=== PATIENT | male | born 1955 | race Caucasian/White ===

== ENCOUNTER 2016-05-27 03:39 | Emergency (ER) | payer OTHER ==
[~2016-05-27] VITALS: Ht 170.2 cm; Wt 86.4 kg
[~2016-05-27 03:39] MED LIST: IBUP200C PO; LISI-567 PO; LORA1TAB PO; METO50TA3 PO; OMEP40CA36 PO; PARO40TA3 PO
[2016-05-27 03:51] VITALS: BP 173/78; PULSE 79; RESP 21; O2SAT 94
--- NOTE | 2016-05-27 03:51 | ED.REPORT ---
HPI-General Illness Date of Service May 27, 2016 ED Provider: Dr. Abhilash Kauffman M.D. A 60 year old male well known to the ED with a medical history including diabetes, hypertension, alcohol abuse, and alcohol withdrawal with seizures and delirium tremens presents requesting a medication refill. He is interested in receiving "stomach medication, ibuprofen, steroid cream, and Ativan." The patient reports having a bed saved for him at [facility] today. He also complains of pain in his feet. Nursing Notes Stated Complaint: MEDICATION REFILL Nursing Notes Reviewed: Yes Allergies: Coded Allergies: Penicillins (Verified Allergy, Unknown, RASH, 05/09/16) acetaminophen (Verified Allergy, Unknown, RASH, 05/09/16) codeine (Verified Allergy, Unknown, 05/09/16) hydrocodone (Verified Allergy, Unknown, 05/09/16) oxycodone (Verified Allergy, Unknown, 05/09/16) Scheduled Lisinopril (Lisinopril) 20 Mg Tablet 20 MG PO DAILY Metoprolol Tartrate (Metoprolol Tartrate) 50 Mg Tablet 50 MG PO DAILY Omeprazole (Omeprazole) 40 Mg Capsule.dr 40 MG PO DAILY Omeprazole (Omeprazole) 40 Mg Capsule.dr 40 MG PO DAILY Paroxetine (Paroxetine) 40 Mg Tablet 40 MG PO DAILY Scheduled PRN Ibuprofen (Ibuprofen) 200 Mg Capsule 400 MG PO DAILY PRN PRN For Pain Ibuprofen (Ibuprofen) 600 Mg Tablet 600 MG PO QID PRN PRN For Pain Lorazepam (Lorazepam) 1 Mg Tablet 1 MG PO TID PRN PRN For Anxiety 2 tabs every 4 hr. for 2 d.; then 1 tab. every 4 h.; then 1 every 8 hours for 2 days; then one twice daily General Time Seen by MD: 03:51 Chief Complaint Other (Medication Refill) Hx Obtained From: Patient Arrived By: Walk-in Sudden in Onset?: Yes Onset Occurred: Just prior to arrival Symptom Duration: Since onset Location: : Foot left: Foot right Quality: Painful Severity: Current: Moderate Severity: Maximum: Moderate Associated with: Denies: Fever Pertinent Negative: Relieved by nothing Context Related History: Reports Diabetes mellitus, Reports Drug dependence Recent Healthcare: No recent doctor visit Similar Sx Previous: Yes Past Medical History Past Medical History Notes: 05/14/14: Normal stress echocardiogram 04/11/2016[facility] [place] states they will not take him back when he is detoxing Past Medical History ETOH Abuse h/o Seizures and delirium tremens secondary to alcohol withdrawal (by report - long hx of ED visits more recently without seizures for years) Mild Seizure Disorder followed by Dr. Armijo (was on Topamax, D/C'd 01/03 as can contribute to kidney stones, has tolerated Depakote) Anxiety and panic disorder Kidney Stones Patient has horded benzodiazepines with multiple prescriptions from multiple providers H/o mild LFT elevation attributed to ETOH abuse Chronic shoulder pain right and left ("rotator cuff and labrum tear") Chronic hip pain Reports: Diabetes mellitus, GERD, Hyperlipidemia, Hypertension Past Surgical History Umbilical hernia repair. Bilateral inguinal hernia repair. Tonsillectomy. Melanoma removed twice at two different sites. Cystocopy and ureteral stone extraction 12/[address] Kincaid Family History noncontributory Smoking History Never Smoker Social History Alcohol Use: >5 per day Drug Use: THC Other Social History: Poor social support, Frequent ED visitor, Local resident , Homeless Occupation homeless 04/11/2016 Ambulatory Status Independent Review of Systems + Medication refill request Full Review of Systems Constitutional: Denies: Fever Respiratory: Denies: Non-productive cough, Shortness of breath GI: Denies: Vomiting Musculoskeletal: Reports: Extremity pain (Bilateral feet) Complete sys rev & neg: except as marked. Physical Exam Vital Signs Vital Signs Date Time Temp Pulse Resp B/P Pulse Ox O2 Delivery O2 Flow Rate FiO2 05/27/16 04:25 36.2 79 21 173/78 94 Room Air 05/27/16 03:51 36.2 79 21 173/78 94 Room Air Initial VS: Reviewed, Vital signs abnormal Head / Eyes: Atraumatic, Normocephalic ENT: Conjunctiva normal, No scleral icterus Neck: Supple, Full range of motion Respiratory: Breath sounds normal, Clear to auscultation, No respiratory distress Cardiovascular: Regular rate & rhythm, Heart sounds normal Skin: Warm, Dry, No cyanosis Neurologic: Alert, Oriented, Nonfocal Psychiatric: Mood/affect normal, Behavior normal, Normal thought content General/Constitutional: Awake, Alert, No acute distress Appearance / Presentation: Positive: Appears older than age Abdomen: Soft Tenderness/Guarding/Rebound: Positive: Tender RUQ... Lower Extremity / Pelvis / MS: Neurologic intact, Vascular intact Trace bilateral pitting edema Ankle / Foot: Neurologic intact, Vascular intact Toenail fungus and tinea pedis present bilaterally Re-Eval/Medical Decision Med Decision/Clinical Course 60-year-old chronic alcoholic who presents for routine refill of 3 medications, "I can't get into see my resident physician." He also states that he has a bed later today at [facility] which I confirmed. An Ativan taper was written to be used only by [facility]. Source of Hx: Old records Time of Eval: 04:00 Patient Status: Condition improved Re-Evaluation/Progress Note: Discussed with patient diagnosis and plan for discharge. Follow-up and return to the ER instructions given. Patient agrees with plan for care and all questions were addressed. Consultation : Call Returned at: 03:57 Inspector [employer] Castings: Agrees with eval, Agrees with plan Note: [facility] - The patient does have a spot pending bed availability Counseled Regarding: Diagnosis, Need for follow-up, When/why to return to ED Discharge & Departure Primary Impression: Medication refill Additional Impressions: Alcohol dependence Substance use status: uncomplicated Qualified Code: F10.20 - Alcohol dependence, uncomplicated Homeless Disposition: Home Discharge Condition All VS Reviewed: Yes Condition: Stable Patient Instructions: Alcohol Withdrawal (ED) Additional Instructions: I refilled [facility] omeprazole, ibuprofen, and triamcinolone steroid cream. I faxed a tapered dose of Ativan to the pharmacy used by [facility]. It can only be accessed if you are at [facility]. Contact them later today to see if there is a bed available. Referrals: Chandni Mcclure DO (PCP) Ewa Attestation Portions of this note were transcribed by Sera Degroot. I, Dr. Kauffman, personally performed the history, physical exam, and medical decision-making; I reviewed and confirmed the accuracy of the information in the transcribed note. Signed by: Ewa Valadez, 05/27/2016, 04:42 copies to: Chandni Mcclure Howard L MD May 27, 2016 03:51 SERA DEGROOT May 27, 2016 03:58
[2016-05-27] MEDS ORDERED: OMEP40CA36 PO (04:06)
[2016-05-27] MEDS ORDERED: IBUP-1827 PO (04:06)
[2016-05-27 04:25] VITALS: BP 173/78; PULSE 79; RESP 21; O2SAT 94
== END 2016-05-27 04:26 | disposition home or self-care (01) ==
LOC: SED 03:39
DX: F10.20 Alcohol dependence, uncomplicated (principal); M79.671 Pain in right foot; M79.672 Pain in left foot; I10 Essential (primary) hypertension; K21.9 Gastro-esophageal reflux disease without esophagitis; E11.9 Type 2 diabetes mellitus without complications; E78.5 Hyperlipidemia, unspecified; Z76.0 Encounter for issue of repeat prescription; Z59.0 Homelessness; Z88.0 Allergy status to penicillin; Z88.5 Allergy status to narcotic agent; Z88.8 Allergy status to other drugs, medicaments and biological substances

== ENCOUNTER 2016-05-30 20:33 | Emergency (ER) | payer OTHER ==
[~2016-05-30] VITALS: Ht 170.2 cm; Wt 86.0 kg
[~2016-05-30 20:33] MED LIST changes: +IBUP-1827 PO
[2016-05-30 20:40] VITALS: BP 119/70; PULSE 73; RESP 20; O2SAT 98
--- NOTE | 2016-05-30 22:28 | ED.REPORT ---
HPI-General Illness Date of Service May 30, 2016 ED Provider: Abhilash Kauffman MD Patient is 60 y/o male with a history of alcoholism who presents to ED complaining of numbness and burning sensation of the left upper extremity. He also is requesting assistance with alcohol detox. Patient is well known to us here in the department. Nursing Notes Stated Complaint: LEFT ARM ISSUES,DETOX RX QUESTIONS Chief Complaint: General Complaint Nursing Notes Reviewed: Yes Allergies: Coded Allergies: Penicillins (Verified Allergy, Unknown, RASH, 05/09/16) acetaminophen (Verified Allergy, Unknown, RASH, 05/09/16) codeine (Verified Allergy, Unknown, 05/09/16) hydrocodone (Verified Allergy, Unknown, 05/09/16) oxycodone (Verified Allergy, Unknown, 05/09/16) Scheduled Lisinopril (Lisinopril) 20 Mg Tablet 20 MG PO DAILY Metoprolol Tartrate (Metoprolol Tartrate) 50 Mg Tablet 50 MG PO DAILY Omeprazole (Omeprazole) 40 Mg Capsule.dr 40 MG PO DAILY Omeprazole (Omeprazole) 40 Mg Capsule.dr 40 MG PO DAILY Paroxetine (Paroxetine) 40 Mg Tablet 40 MG PO DAILY Scheduled PRN Ibuprofen (Ibuprofen) 200 Mg Capsule 400 MG PO DAILY PRN PRN For Pain Ibuprofen (Ibuprofen) 600 Mg Tablet 600 MG PO QID PRN PRN For Pain Lorazepam (Lorazepam) 1 Mg Tablet 1 MG PO TID PRN PRN For Anxiety 2 tabs every 4 hr. for 2 d.; then 1 tab. every 4 h.; then 1 every 8 hours for 2 days; then one twice daily General Time Seen by MD: 22:27 Chief Complaint Other (Left Arm Numbness) Hx Obtained From: Patient Arrived By: Walk-in Sudden in Onset?: No Onset Occurred: Onset unknown Location: : Arm left Quality: Burning Severity: Current: Moderate Severity: Maximum: Moderate Similar Sx Previous: Yes Past Medical History Past Medical History Notes: 05/14/14: Normal stress echocardiogram 04/11/2016, [facility] [place], states they will not take him back when he is detoxing Past Medical History ETOH Abuse h/o Seizures and delirium tremens secondary to alcohol withdrawal (by report - long hx of ED visits more recently without seizures for years) Mild Seizure Disorder followed by Dr. Armijo (was on Topamax, D/C'd 01/03 as can contribute to kidney stones, has tolerated Depakote) Anxiety and panic disorder Kidney Stones Patient has horded benzodiazepines with multiple prescriptions from multiple providers H/o mild LFT elevation attributed to ETOH abuse Chronic shoulder pain right and left ("rotator cuff and labrum tear") Chronic hip pain Reports: Diabetes mellitus, GERD, Hyperlipidemia, Hypertension Past Surgical History Umbilical hernia repair. Bilateral inguinal hernia repair. Tonsillectomy. Melanoma removed twice at two different sites. Cystocopy and ureteral stone extraction 12/[address] Kincaid Family History noncontributory Smoking History Never Smoker Social History Alcohol Use: >5 per day Drug Use: THC Other Social History: Poor social support, Frequent ED visitor, Local resident , Homeless Occupation homeless 04/11/2016 Ambulatory Status Independent Review of Systems Full Review of Systems Constitutional: Denies: Chills, Fever Musculoskeletal: Reports: Extremity pain (Left Arm), Denies: Back pain, Joint pain, Lumbar pain, Neck pain, Thoracic pain Neurologic: Reports: Numbness (Left Arm) Complete sys rev & neg: except as marked. Physical Exam Vital Signs Vital Signs Date Time Temp Pulse Resp B/P Pulse Ox O2 Delivery O2 Flow Rate FiO2 05/30/16 20:40 37.2 73 20 119/70 98 Room Air Initial VS: Reviewed, Vital signs normal General/Constitutional: Well-developed, Well-nourished Head / Eyes: Atraumatic, Normocephalic, PERRL Respiratory: Breath sounds normal, Clear to auscultation, No respiratory distress Cardiovascular: Regular rate & rhythm, Heart sounds normal, Intact distal pulses Skin: Warm, Dry, No cyanosis Neurologic: Alert, Oriented, Nonfocal Psychiatric: Mood/affect normal, Behavior normal, Normal thought content Upper Extremities Upper Extremity / MS: Atraumatic, Full range of motion, No deformity, Vascular intact Neurologic: Oriented X3, Speech NL, No motor deficits Pt reports numbness and burning sensation to left arm. Interpretation & Diagnostics Lab Results Interpretation Lab Results Interpretation: Breathalyzer 0.180 Re-Eval/Medical Decision Med Decision/Clinical Course Patient presents to get an Ativan prepack so he can go to [facility]. He did a phone screening intake evaluation with them. We were waiting to hear back from them when it was noted that he eloped. Source of Hx: Old records Counseled Regarding: Lab results Discharge & Departure Primary Impression: Alcohol dependence Substance use status: uncomplicated Qualified Code: F10.20 - Alcohol dependence, uncomplicated Disposition: Home Discharge Condition All VS Reviewed: Yes Referrals: Chandni Mcclure DO (PCP) Ewa Attestation Portions of this note were transcribed by Jamin Miner. I, Dr. Kauffman personally performed the history, physical exam and medical decision-making; I reviewed and confirmed the accuracy of the information in the transcribed note. Signed by: Ewa Miner, 05/31/16 and 01:33. copies to: Chandni Mcclure Howard L MD May 30, 2016 22:28 Almas Lomeli May 30, 2016 22:38 JAMIN SY May 31, 2016 00:01
== END 2016-05-31 00:15 | disposition left against medical advice (07) ==
LOC: SED 20:33
DX: F10.20 Alcohol dependence, uncomplicated (principal); R20.0 Anesthesia of skin; E11.9 Type 2 diabetes mellitus without complications; K21.9 Gastro-esophageal reflux disease without esophagitis; E78.5 Hyperlipidemia, unspecified; I10 Essential (primary) hypertension; Z59.0 Homelessness; Z88.0 Allergy status to penicillin; Z88.6 Allergy status to analgesic agent; Z88.5 Allergy status to narcotic agent

== ENCOUNTER 2016-06-03 20:39 | Emergency (ER) | payer OTHER ==
[~2016-06-03] VITALS: Ht 170.2 cm; Wt 86.4 kg
[2016-06-03 20:43] VITALS: BP 155/83; PULSE 80; RESP 16; O2SAT 96
--- NOTE | 2016-06-03 21:40 | ED.REPORT ---
HPI-General Illness Date of Service Jun 03, 2016 ED Provider: Doc,Ed MD The patient is a 60 year old male with extensive history of ED visits for alcohol abuse who presents to the ED seeking medical clearance for [facility]. He reports that he has spoken with [facility] and is waiting for a bed. He has been drinking today, but "less than he normally does". He denies any other symptoms at this time. Nursing Notes Stated Complaint: MEDICAL CLEARANCE FOR CRISIS Chief Complaint: Substance Abuse Nursing Notes Reviewed: Yes Allergies: Coded Allergies: Penicillins (Verified Allergy, Unknown, RASH, 05/09/16) acetaminophen (Verified Allergy, Unknown, RASH, 05/09/16) codeine (Verified Allergy, Unknown, 05/09/16) hydrocodone (Verified Allergy, Unknown, 05/09/16) oxycodone (Verified Allergy, Unknown, 05/09/16) Scheduled Lisinopril (Lisinopril) 20 Mg Tablet 20 MG PO DAILY Metoprolol Tartrate (Metoprolol Tartrate) 50 Mg Tablet 50 MG PO DAILY Omeprazole (Omeprazole) 40 Mg Capsule.dr 40 MG PO DAILY Omeprazole (Omeprazole) 40 Mg Capsule.dr 40 MG PO DAILY Paroxetine (Paroxetine) 40 Mg Tablet 40 MG PO DAILY Scheduled PRN Ibuprofen (Ibuprofen) 200 Mg Capsule 400 MG PO DAILY PRN PRN For Pain Ibuprofen (Ibuprofen) 600 Mg Tablet 600 MG PO QID PRN PRN For Pain Lorazepam (Lorazepam) 1 Mg Tablet 1 MG PO TID PRN PRN For Anxiety 2 tabs every 4 hr. for 2 d.; then 1 tab. every 4 h.; then 1 every 8 hours for 2 days; then one twice daily General Time Seen by MD: 21:39 Chief Complaint Other (Medical clearance) Hx Obtained From: Patient Arrived By: Walk-in Sudden in Onset?: No Onset Occurred: Onset unknown Symptom Duration: Since onset Severity: Current: No pain currently Severity: Maximum: No pain Recent Healthcare: No recent hospitalization, Recent doctor visit Similar Sx Previous: Yes Past Medical History Past Medical History Notes: 05/14/14: Normal stress echocardiogram 04/11/2016, [facility] [place], states they will not take him back when he is detoxing Past Medical History ETOH Abuse h/o Seizures and delirium tremens secondary to alcohol withdrawal (by report - long hx of ED visits more recently without seizures for years) Mild Seizure Disorder followed by Dr. Armijo (was on Topamax, D/C'd 01/03 as can contribute to kidney stones, has tolerated Depakote) Anxiety and panic disorder Kidney Stones Patient has horded benzodiazepines with multiple prescriptions from multiple providers H/o mild LFT elevation attributed to ETOH abuse Chronic shoulder pain right and left ("rotator cuff and labrum tear") Chronic hip pain Reports: Diabetes mellitus, GERD, Hyperlipidemia, Hypertension Past Surgical History Umbilical hernia repair. Bilateral inguinal hernia repair. Tonsillectomy. Melanoma removed twice at two different sites. Cystocopy and ureteral stone extraction 12/[address] Kincaid Family History noncontributory Smoking History Never Smoker Social History Alcohol Use: >5 per day Drug Use: THC Other Social History: Poor social support, Frequent ED visitor, Local resident , Homeless Occupation homeless 04/11/2016 Ambulatory Status Independent Review of Systems Alcohol intoxication Medical clearance for [facility] Complete sys rev & neg: except as marked. Physical Exam Vital Signs Vital Signs Date Time Temp Pulse Resp B/P Pulse Ox O2 Delivery O2 Flow Rate FiO2 06/04/16 04:58 36.7 84 16 182/93 98 Room Air 06/03/16 20:43 36.2 80 16 155/83 96 Room Air Initial VS: Reviewed Head / Eyes: Atraumatic, Normocephalic, PERRL ENT: Mucous membranes moist, Conjunctiva normal, No scleral icterus Neck: Supple, Non-tender, Full range of motion Respiratory: Breath sounds normal, Clear to auscultation, No respiratory distress Cardiovascular: Regular rate & rhythm, Heart sounds normal, Intact distal pulses Abdomen / GI: Soft, Non-tender, No guarding, No rebound, No distention Back: No CVA tenderness Extremities: Vascular intact, Neuro intact, No swelling, No tenderness Skin: Warm, Dry, No cyanosis Psychiatric: Mood/affect normal, Behavior normal General/Constitutional: Awake, No acute distress Appearance / Presentation: Positive: Intoxicated Patient presents intoxicated and laying on the floor. He denies any complaint at this time. Re-Eval/Medical Decision Med Decision/Clinical Course 60-year-old chronic alcoholism presents for clearance for detox and crisis. No additional medical issues from his paced line. Cleared to crisis with lorazepam at double the standard dose, as he has repeatedly failed lower dose regimens. He is transported via taxicab with meds delivered to crisis via the cab. Source of Hx: Old records Time of Eval: 23:30 Re-Evaluation/Progress Note: Spoke with [facility] who confirmed that the patient has a bed waiting for him at 09:00. Counseled Regarding: Diagnosis, Need for follow-up, When/why to return to ED Discharge & Departure Primary Impression: Alcohol abuse Additional Impression: Alcohol withdrawal Complication of substance-induced condition: uncomplicated Qualified Code: F10.230 - Alcohol dependence with withdrawal, uncomplicated Disposition: Home ([facility]) Discharge Condition All VS Reviewed: Yes Condition: Stable Patient Instructions: Alcohol Withdrawal (ED) Additional Instructions: Go directly to Crisis. Take medicines as directed by staff. Good luck with your recovery. Referrals: Chandni Mcclure DO (PCP) Ewa Attestation Portions of this note were transcribed by Ilia Dumont. I, Dr. Weinstein, personally performed the history, physical exam, and medical decision-making; I reviewed and confirmed the accuracy of the information in the transcribed note. Signed by: Ewa Macias, 06/04/16 06:00. copies to: Chandni Mcclure Christopher W MD Jun 03, 2016 21:39 ILIA DUMONT Jun 03, 2016 22:32
[2016-06-03] MEDS ORDERED: _LORazepam 2 MG Tablet PO SCH (23:30)
[2016-06-04] MEDS ORDERED: LORazepam 2 mg Tablet PO ONE ×2 (02:30→05:20)
[2016-06-04 04:58] VITALS: BP 182/93; PULSE 84; RESP 16; O2SAT 98
== END 2016-06-04 09:16 | disposition home or self-care (01) ==
LOC: SED 20:39
DX: F10.230 Alcohol dependence with withdrawal, uncomplicated (principal); I10 Essential (primary) hypertension; E78.5 Hyperlipidemia, unspecified; K21.9 Gastro-esophageal reflux disease without esophagitis; E11.9 Type 2 diabetes mellitus without complications; G40.909 Epilepsy, unspecified, not intractable, without status epilepticus; Z59.0 Homelessness; Z88.0 Allergy status to penicillin; Z88.5 Allergy status to narcotic agent; Z88.8 Allergy status to other drugs, medicaments and biological substances

== ENCOUNTER 2016-06-15 01:37 | Emergency (ER) | payer OTHER ==
[~2016-06-15] VITALS: Ht 170.2 cm; Wt 90.9 kg
[2016-06-15 01:57] VITALS: BP 131/82; PULSE 70; RESP 16; O2SAT 96
--- NOTE | 2016-06-15 03:13 | ED.REPORT ---
HPI-General Illness Date of Service Jun 15, 2016 ED Provider: Abhilash Kauffman MD This is a 60 year old male with a history of EtOH abuse, frequent ED visits, HTN , DM, GERD, hyperlipidemia presenting to the emergency department today seeking detox. Pt reports recently treated through [facility] detox program, last EtOH consumption earlier today. Pt is interested in detox again. Additionally, he has been unable to fill prescriptions for omeprazole and ibuprofen and would like new prescriptions for the medications. Nursing Notes Stated Complaint: DETOX Chief Complaint: Substance Abuse Nursing Notes Reviewed: Yes Allergies: Coded Allergies: Penicillins (Verified Allergy, Unknown, RASH, 05/09/16) acetaminophen (Verified Allergy, Unknown, RASH, 05/09/16) codeine (Verified Allergy, Unknown, 05/09/16) hydrocodone (Verified Allergy, Unknown, 05/09/16) oxycodone (Verified Allergy, Unknown, 05/09/16) Scheduled Lisinopril (Lisinopril) 20 Mg Tablet 20 MG PO DAILY Metoprolol Tartrate (Metoprolol Tartrate) 50 Mg Tablet 50 MG PO DAILY Omeprazole (Omeprazole) 40 Mg Capsule.dr 40 MG PO DAILY Omeprazole (Omeprazole) 40 Mg Capsule.dr 40 MG PO DAILY Omeprazole (Omeprazole) 20 Mg Tablet.dr 20 MG PO BID Paroxetine (Paroxetine) 40 Mg Tablet 40 MG PO DAILY Scheduled PRN Ibuprofen (Ibuprofen) 200 Mg Capsule 400 MG PO DAILY PRN PRN For Pain Ibuprofen (Ibuprofen) 600 Mg Tablet 600 MG PO QID PRN PRN For Pain Ibuprofen (Ibuprofen) 600 Mg Tablet 600 MG PO QID PRN PRN For Pain Lorazepam (Lorazepam) 1 Mg Tablet 1 MG PO TID PRN PRN For Anxiety 2 tabs every 4 hr. for 2 d.; then 1 tab. every 4 h.; then 1 every 8 hours for 2 days; then one twice daily General Time Seen by MD: 02:08 Chief Complaint Other Hx Obtained From: Patient Arrived By: Walk-in Sudden in Onset?: No Severity: Current: No pain currently Pertinent Negative: Pt denies other symptoms Recent Healthcare: No recent doctor visit, No recent hospitalization Similar Sx Previous: Yes Past Medical History Past Medical History Notes: 05/14/14: Normal stress echocardiogram 04/11/2016, staying at [facility] in [place], states they will not take him back when he is detoxing Past Medical History ETOH Abuse h/o Seizures and delirium tremens secondary to alcohol withdrawal (by report - long hx of ED visits more recently without seizures for years) Mild Seizure Disorder followed by Dr. Armijo (was on Topamax, D/C'd 01/03 as can contribute to kidney stones, has tolerated Depakote) Anxiety and panic disorder Kidney Stones Patient has horded benzodiazepines with multiple prescriptions from multiple providers H/o mild LFT elevation attributed to ETOH abuse Chronic shoulder pain right and left ("rotator cuff and labrum tear") Chronic hip pain Reports: Diabetes mellitus, GERD, Hyperlipidemia, Hypertension Past Surgical History Umbilical hernia repair. Bilateral inguinal hernia repair. Tonsillectomy. Melanoma removed twice at two different sites. Cystocopy and ureteral stone extraction 12/[address] Kincaid Family History noncontributory Smoking History Never Smoker Social History Alcohol Use: >5 per day Drug Use: THC Other Social History: Poor social support, Frequent ED visitor, Local resident , Homeless Occupation homeless 04/11/2016 Ambulatory Status Independent Review of Systems Full Review of Systems Constitutional: Denies: Chills, Fever Respiratory: Denies: Non-productive cough, Shortness of breath Cardiovascular: Denies: Chest pain GI: Denies: Nausea, Vomiting Neurologic: Denies: Headache Complete sys rev & neg: except as marked. Physical Exam Vital Signs Vital Signs Date Time Temp Pulse Resp B/P Pulse Ox O2 Delivery O2 Flow Rate FiO2 06/15/16 04:59 70 18 144/65 99 Room Air 06/15/16 01:57 36 70 16 131/82 96 Room Air Initial VS: Reviewed, Vital signs normal Head / Eyes: Atraumatic, Normocephalic, PERRL ENT: Mucous membranes moist, Conjunctiva normal, No scleral icterus Neck: Supple, Non-tender, Full range of motion Respiratory: Breath sounds normal, Clear to auscultation, No respiratory distress Cardiovascular: Regular rate & rhythm, Heart sounds normal, Intact distal pulses Extremities: Vascular intact, Neuro intact, No swelling, No tenderness Skin: Warm, Dry, No cyanosis Neurologic: Alert, Oriented, Nonfocal Psychiatric: Behavior normal General/Constitutional: Awake, Alert Re-Eval/Medical Decision Med Decision/Clinical Course 60-year-old male who is well known to me. He presents for detox with a long complicated story about how he will be successful this time. Short of it is that there is no beds available. He was prescreened on the telephone with [facility]. A tapering prescription of lorazepam was written and faxed to [facility] only to be used if and when [facility]. Counseled Regarding: Diagnosis, Need for follow-up, When/why to return to ED Discharge & Departure Primary Impression: Alcohol abuse Disposition: Home Discharge Condition All VS Reviewed: Yes Condition: Stable Patient Instructions: Alcohol Withdrawal (ED) Additional Instructions: Contact [facility] in the morning to see if they have a bed available for you. If you do go there, they can shredder picker your Ativan taper prescription at [facility] pharmacy. Ibuprofen and omeprazole were also refilled. Referrals: Chandni Mcclure DO (PCP) Scribe Attestation Portions of this note were transcribed by Cosmo Chilel. I, Dr. Kauffman personally performed the history, physical exam and medical decision-making; I reviewed and confirmed the accuracy of the information in the transcribed note. Signed by: romelia Soni. 06/14/2016, 05:00. Abhilash Kauffman MD Jun 15, 2016 03:13 COSMO CHILEL Jun 15, 2016 03:43
[2016-06-15] MEDS ORDERED: OMEP20TA86 PO (04:41)
[2016-06-15] MEDS ORDERED: IBUP-1827 PO (04:41)
[2016-06-15 04:59] VITALS: BP 144/65; PULSE 70; RESP 18; O2SAT 99
== END 2016-06-15 04:45 | disposition home or self-care (01) ==
LOC: SED 01:37
DX: F10.20 Alcohol dependence, uncomplicated (principal); I10 Essential (primary) hypertension; K21.9 Gastro-esophageal reflux disease without esophagitis; E11.9 Type 2 diabetes mellitus without complications; E78.5 Hyperlipidemia, unspecified; Z59.0 Homelessness; Z88.0 Allergy status to penicillin; Z88.6 Allergy status to analgesic agent; Z88.5 Allergy status to narcotic agent

== ENCOUNTER 2016-06-17 21:17 | Emergency (ER) | payer OTHER ==
[~2016-06-17] VITALS: Ht 170.2 cm; Wt 88.6 kg
[~2016-06-17 21:17] MED LIST changes: +OMEP20TA86 PO
[2016-06-17 21:23] VITALS: BP 141/76; PULSE 79; RESP 20; O2SAT 98
--- NOTE | 2016-06-17 21:29 | ED.REPORT ---
HPI-General Illness Date of Service Jun 17, 2016 ED Provider: David Weinstein MD A 60 year old male with a history of alcohol abuse, frequent ED visits, seizures , hypertension, diabetes, GERD and hyperlipidemia presents to the ED seeking medical clearance for [facility]. Patient reportedly has a bed available at 0100. He states that he currently feels dehydrated and has also been experiencing constipation for the past few days. Patient has been seen in the ED 4 times for alcohol abuse since 05/22. He was recently discharged from [facility] 5 days ago. Patient plans to attend a longterm care facility in [place] later this month. He claims that he is no longer homeless and "feels great". He denies any current abdominal pain, nausea or symptoms of pancreatics. Patient takes baclofen for muscle spasms and states that he has also been using it to "reduce cravings". Nursing Notes Stated Complaint: CRISIS MEDICAL CLEARANCE Chief Complaint: General Complaint Nursing Notes Reviewed: Yes Allergies: Coded Allergies: Penicillins (Verified Allergy, Unknown, RASH, 05/09/16) acetaminophen (Verified Allergy, Unknown, RASH, 05/09/16) codeine (Verified Allergy, Unknown, 05/09/16) hydrocodone (Verified Allergy, Unknown, 05/09/16) oxycodone (Verified Allergy, Unknown, 05/09/16) Scheduled Lisinopril (Lisinopril) 20 Mg Tablet 20 MG PO DAILY Metoprolol Tartrate (Metoprolol Tartrate) 50 Mg Tablet 50 MG PO DAILY Omeprazole (Omeprazole) 40 Mg Capsule. 40 MG PO DAILY Omeprazole (Omeprazole) 40 Mg Capsule. 40 MG PO DAILY Omeprazole (Omeprazole) 20 Mg Tablet.dr 20 MG PO BID Paroxetine (Paroxetine) 40 Mg Tablet 40 MG PO DAILY Scheduled PRN Ibuprofen (Ibuprofen) 200 Mg Capsule 400 MG PO DAILY PRN PRN For Pain Ibuprofen (Ibuprofen) 600 Mg Tablet 600 MG PO QID PRN PRN For Pain Ibuprofen (Ibuprofen) 600 Mg Tablet 600 MG PO QID PRN PRN For Pain Lorazepam (Lorazepam) 1 Mg Tablet 1 MG PO TID PRN PRN For Anxiety 2 tabs every 4 hr. for 2 d.; then 1 tab. every 4 h.; then 1 every 8 hours for 2 days; then one twice daily Ondansetron ODT (Ondansetron ODT) 8 Mg Tab.rapdis 8 MG PO QID PRN PRN For Nausea General Time Seen by MD: 21:25 Chief Complaint Medical clearance Hx Obtained From: Patient Arrived By: Walk-in Sudden in Onset?: No Onset Occurred: 3 days ago Context of Onset: EtOH use Symptom Duration: Since onset Location: No: Abdomen Associated with: Denies: Abdominal pain, Nausea Additional Notes: Pt is seeking medical clearence for [facility] Pertinent Negative: Pt denies other symptoms Recent Healthcare: Recent doctor visit, Recent hospitalization Past Medical History Past Medical History Notes: 05/14/14: Normal stress echocardiogram 04/11/2016, [facility] [place], states they will not take him back when he is detoxing Past Medical History ETOH Abuse h/o Seizures and delirium tremens secondary to alcohol withdrawal (by report - long hx of ED visits more recently without seizures for years) Mild Seizure Disorder followed by Dr. Armijo (was on Topamax, D/C'd 01/03 as can contribute to kidney stones, has tolerated Depakote) Anxiety and panic disorder Kidney Stones Patient has horded benzodiazepines with multiple prescriptions from multiple providers H/o mild LFT elevation attributed to ETOH abuse Chronic shoulder pain right and left ("rotator cuff and labrum tear") Chronic hip pain Reports: Diabetes mellitus, GERD, Hyperlipidemia, Hypertension Past Surgical History Umbilical hernia repair. Bilateral inguinal hernia repair. Tonsillectomy. Melanoma removed twice at two different sites. Cystocopy and ureteral stone extraction 12/[address] Kincaid Family History noncontributory Smoking History Never Smoker Social History Alcohol Use: >5 per day Drug Use: THC Other Social History: Poor social support, Frequent ED visitor, Local resident , Homeless Occupation homeless 04/11/2016 Ambulatory Status Independent Review of Systems Pt is seeking medical clearance for [facility] Reports feeling dehydrated Full Review of Systems Constitutional: Denies: Chills, Fever Respiratory: Denies: Shortness of breath Cardiovascular: Denies: Chest pain GI: Reports: Constipation, Denies: Abdominal pain, Nausea, Vomiting Neurologic: Denies: Change LOC Complete sys rev & neg: except as marked. Physical Exam Vital Signs Vital Signs Date Time Temp Pulse Resp B/P Pulse Ox O2 Delivery O2 Flow Rate FiO2 06/18/16 00:54 36.2 75 16 135/75 94 Room Air 06/17/16 21:23 36.2 79 20 141/76 98 Initial VS: Reviewed Neck: Supple, Non-tender, Full range of motion Skin: Warm, Dry, No cyanosis Neurologic: Alert, Oriented, Nonfocal Psychiatric: Mood/affect normal, Behavior normal, Normal thought content General/Constitutional: Awake, Alert Appearance / Presentation: Positive: Intoxicated (Mild ) Head / Eyes: Atraumatic, Normocephalic Respiratory / Chest: Atraumatic, Breath sounds NL, Breath sounds = bilat Cardiovascular: Heart rate NL, Regular rhythm, Heart sounds NL Abdomen: Atraumatic, Soft Upper Extremities Upper Extremity / MS: Atraumatic, Neurologic intact, Vascular intact Lower Extremity / Pelvis / MS: Atraumatic, Neurologic intact, Vascular intact Interpretation & Diagnostics Lab Results Interpretation Test 06/17/16 22:10 Hold Urine Received (Received) Re-Eval/Medical Decision Med Decision/Clinical Course 60-year-old with chronic alcoholism, alcohol liver disease, pancreatitis, presents requesting medical clearance for detox bed. He has no other specific complaints tonight. He says he has not long-term bed date for later this week and intends to go to [place] for that long-term admission. Transported via [employer] to [facility] with Ativan taper, Zofran when necessary, and continuation of his current baclofen, currently being prescribed to reduce alcohol craving. He is stable for outpatient detox and transported in stable condition. Time of Eval: 22:53 Patient Status: Condition improved Re-Evaluation/Progress Note: Patient is rechecked. He is informed of his lab results and diagnosis. All of his questions are addressed. Patient agrees with plan to discharge and go to his bed at [facility] at 0100. Consultation : Call Returned at: 00:00 Note: [facility] confirms available bed. Counseled Regarding: Diagnosis, Lab results, Need for follow-up, When/why to return to ED Discharge & Departure Primary Impression: Alcoholism Additional Impressions: Alcohol intoxication Complication of substance-induced condition: uncomplicated Qualified Code: F10.120 - Alcohol abuse with intoxication, uncomplicated Alcohol withdrawal Complication of substance-induced condition: uncomplicated Qualified Code: F10.230 - Alcohol dependence with withdrawal, uncomplicated Disposition: Home Discharge Condition All VS Reviewed: Yes Condition: Stable Additional Instructions: Go to crisis as directed. Take the medication as Directed. Good luck with her recovery. Good luck with your long-term rehabilitation admission. Referrals: Chandni Mcclure DO (PCP) Ewa Attestation Portions of this note were transcribed by Leyda Hensley. I, Dr. Weinstein personally performed the history, physical exam and medical decision-making; I reviewed and confirmed the accuracy of the information in the transcribed note. Signed by: Ewa Vallejo, 06/17/16 2300. copies to: Chandni Mcclure Christopher W MD Jun 17, 2016 21:29 LEYDA HENSLEY Jun 17, 2016 21:40
[2016-06-17] MEDS ORDERED: LORazepam 2 mg Tablet PO ONE (22:15)
[2016-06-17] MEDS ORDERED: Ondansetron 8 mg ODT Tablet PO ONE (22:15)
[2016-06-17] MEDS ORDERED: _Ondansetron ODT 4 mg Tablet PO PRN (22:15)
[2016-06-17] MEDS ORDERED: _LORazepam 2 MG Tablet PO SCH (22:15)
[2016-06-17] MEDS ORDERED: ONDA8TAB10 PO (22:47)
[2016-06-18 00:54] VITALS: BP 135/75; PULSE 75; RESP 16; O2SAT 94
== END 2016-06-18 00:45 | disposition home or self-care (01) ==
LOC: SED 21:17
DX: F10.230 Alcohol dependence with withdrawal, uncomplicated (principal); E86.0 Dehydration; K59.00 Constipation, unspecified; M62.838 Other muscle spasm; I10 Essential (primary) hypertension; K21.9 Gastro-esophageal reflux disease without esophagitis; E78.5 Hyperlipidemia, unspecified; E11.9 Type 2 diabetes mellitus without complications; Z59.0 Homelessness; Z88.0 Allergy status to penicillin; Z88.5 Allergy status to narcotic agent; Z88.8 Allergy status to other drugs, medicaments and biological substances

== ENCOUNTER 2016-06-29 23:09 | Emergency (ER) | payer OTHER ==
[~2016-06-29 23:09] MED LIST changes: +ONDA8TAB10 PO
[2016-06-29 23:14] VITALS: BP 157/88; PULSE 68; O2SAT 97
--- NOTE | 2016-06-29 23:55 | ED.REPORT ---
HPI-General Illness Date of Service Jun 29, 2016 ED Provider: Abhilash Kauffman MD Patient is a homeless 60 year old male with a history of alcohol abuse with alcohol withdrawal seizures who presents to the ED seeking medical management of his alcohol withdrawal prior to presenting to [facility] tomorrow morning, with the patient last consuming alcohol just prior to arrival. The patient traveling to [place] at 7am tomorrow morning and is afraid that he is going to go into withdrawal before then. His hand method lasting machine operator is meeting him at [facility] in [facility] at 7am, driving him to [place], where he will take the ferry to [place]. The patient states that [facility] has both detox and inpatient care. The patient reports having a sore throat and states that the woman he was staying with recently was sick with an upper respiratory infection. Patient denies having a cough, fever, chills, or any symptoms of alcohol withdrawal at this time. Nursing Notes Stated Complaint: SORE THROAT,DETOX Chief Complaint: General Complaint Nursing Notes Reviewed: Yes Allergies: Coded Allergies: Penicillins (Verified Allergy, Unknown, RASH, 05/09/16) acetaminophen (Verified Allergy, Unknown, RASH, 05/09/16) codeine (Verified Allergy, Unknown, 05/09/16) hydrocodone (Verified Allergy, Unknown, 05/09/16) oxycodone (Verified Allergy, Unknown, 05/09/16) Scheduled Lisinopril (Lisinopril) 20 Mg Tablet 20 MG PO DAILY Metoprolol Tartrate (Metoprolol Tartrate) 50 Mg Tablet 50 MG PO DAILY Omeprazole (Omeprazole) 40 Mg Capsule.dr 40 MG PO DAILY Omeprazole (Omeprazole) 40 Mg Capsule.dr 40 MG PO DAILY Omeprazole (Omeprazole) 20 Mg Tablet.dr 20 MG PO BID Paroxetine (Paroxetine) 40 Mg Tablet 40 MG PO DAILY Scheduled PRN Ibuprofen (Ibuprofen) 200 Mg Capsule 400 MG PO DAILY PRN PRN For Pain Ibuprofen (Ibuprofen) 600 Mg Tablet 600 MG PO QID PRN PRN For Pain Ibuprofen (Ibuprofen) 600 Mg Tablet 600 MG PO QID PRN PRN For Pain Lorazepam (Lorazepam) 1 Mg Tablet 1 MG PO TID PRN PRN For Anxiety 2 tabs every 4 hr. for 2 d.; then 1 tab. every 4 h.; then 1 every 8 hours for 2 days; then one twice daily Ondansetron ODT (Ondansetron ODT) 8 Mg Tab.rapdis 8 MG PO QID PRN PRN For Nausea General Time Seen by MD: 23:53 Chief Complaint Medical clearance, Other (alcohol withdrawal) Hx Obtained From: Patient Arrived By: Walk-in Sudden in Onset?: No Onset Occurred: Just prior to arrival Symptom Duration: Since onset Severity: Current: No pain currently Severity: Maximum: No pain Recent Healthcare: No recent hospitalization, Recent doctor visit Similar Sx Previous: Yes Past Medical History Past Medical History Notes: 05/14/14: Normal stress echocardiogram 04/11/2016, [facility] [place], states they will not take him back when he is detoxing Past Medical History ETOH Abuse h/o Seizures and delirium tremens secondary to alcohol withdrawal (by report - long hx of ED visits more recently without seizures for years) Mild Seizure Disorder followed by Dr. Armijo (was on Topamax, D/C'd 01/03 as can contribute to kidney stones, has tolerated Depakote) Anxiety and panic disorder Kidney Stones Patient has horded benzodiazepines with multiple prescriptions from multiple providers H/o mild LFT elevation attributed to ETOH abuse Chronic shoulder pain right and left ("rotator cuff and labrum tear") Chronic hip pain Reports: Diabetes mellitus, GERD, Hyperlipidemia, Hypertension Past Surgical History Umbilical hernia repair. Bilateral inguinal hernia repair. Tonsillectomy. Melanoma removed twice at two different sites. Cystocopy and ureteral stone extraction 12/[address] Kincaid Family History noncontributory Smoking History Never Smoker Social History Alcohol Use: >5 per day Drug Use: THC Other Social History: Poor social support, Frequent ED visitor, Local resident , Homeless Occupation homeless 04/11/2016 Ambulatory Status Independent Review of Systems + denies symptoms of alcohol withdrawal Full Review of Systems Constitutional: Denies: Fever Ears / Nose / Throat: Reports: Sore throat, Throat pain Respiratory: Denies: Non-productive cough Complete sys rev & neg: except as marked. Physical Exam Vital Signs Vital Signs Date Time Temp Pulse Resp B/P Pulse Ox O2 Delivery O2 Flow Rate FiO2 06/29/16 23:14 35.9 68 157/88 97 Room Air Initial VS: Reviewed Extremities: Vascular intact, Neuro intact Skin: Warm, Dry, No cyanosis Neurologic: Alert, Oriented, Nonfocal Psychiatric: Mood/affect normal, Behavior normal, Normal thought content General/Constitutional: Awake, Alert Behavior: Positive: Appears intoxicated Appearance / Presentation: Positive: Intoxicated Head / Eyes: Atraumatic, Normocephalic, PERRL ENT: Airway patent, Tympanic membs NL Pharynx / Tonsils / Uvula: Positive: Pharyngeal erythema Neck: Supple, Non-tender Respiratory / Chest: Breath sounds NL, Breath sounds = bilat, No respiratory distress, No rales, No rhonchi, No wheezing Cardiovascular: Heart rate NL, Regular rhythm, Heart sounds NL, No murmurs Abdomen: Soft, Non-tender, No guarding, No rebound Interpretation & Diagnostics Interpretation & Diagnostics: Breathalyzer @ 2338: 0.380 Breathalyzer @ 0355: 0.256 Rapid Strep: Negative Lab Results Interpretation Result Diagram: 06/30/162906/30/1629 Test 06/30/16 00:30 White Blood Count 3.7th/mm3 (3.8-10.1) Red Blood Count 4.69mil/mm3 (4.40-5.80) Hemoglobin 14.0g/dL (13.8-17.2) Hematocrit 41.0% (41.0-50.0) Mean Corpuscular Volume 87.4fL (81-100) Mean Corpuscular Hemoglobin 29.9pg (27.0-35.0) Mean Corpuscular Hemoglobin Concent 34.1% (32.0-37.0) Red Cell Distribution Width 14.2% (12.3-15.4) Platelet Count 102bil/L (150-400) Neutrophils (%) (Auto) 37.0% (40-74) Lymphocytes (%) (Auto) 53.3% (14-46) Monocytes (%) (Auto) 8.7% (4-12) Eosinophils (%) (Auto) 0.5% (0-5) Basophils (%) (Auto) 0.5% (0-3) Prothrombin Time 10.7sec (8.1-12.5) Prothromb Time International Ratio 1.00ratio Sodium Level 146mEq/L (134-144) Potassium Level 3.2mEq/L (3.5-5.2) Chloride Level 104mEq/L (97-108) Carbon Dioxide Level 25mmol/L (18-29) Blood Urea Nitrogen 7mg/dL (6-24) Creatinine 0.60mg/dL (0.76-1.27) Estimat Glomerular Filtration Rate 147mL/min (>59) Glucose Level 92mg/dL (60-99) Calcium Level 8.4mg/dL (8.5-10.1) Magnesium Level 1.7mg/dL (1.6-2.6) Total Bilirubin 0.3mg/dL (0.0-1.2) Aspartate Amino Transf (AST/SGOT) 70U/L (0-50) Alanine Aminotransferase (ALT/SGPT) 19U/L (0-44) Alkaline Phosphatase 83U/L (25-160) Total Protein 7.3g/dL (6.4-8.4) Albumin 4.3g/dL (3.4-5.0) Hold Peterson Top Tube Received (Received) Re-Eval/Medical Decision Source of Hx: Old records Time of Eval: 03:56 Patient Status: Condition improved Re-Evaluation/Progress Note: Patient has now woken up. Discussed his lab results. He is requesting to be discharged so that he can walk to [email or web address]. Informed him of the plan set out by [facility]. He will need to seek clearance at [facility] ED. Patient understands and agrees with the plan. Discharge instructions and follow-up discussed. All questions were addressed. Return to the ED warnings given. Consultation : Call Returned at: 00:41 Note: Spoke with [facility]. They are holding a bed for the patient, but he cannot simply show up to their facility. The patient needs [facility] at their facility. He will need to go down there and then receive medical clearance at their local hospital. Counseled Regarding: Diagnosis, Lab results, Need for follow-up, When/why to return to ED Discharge & Departure Primary Impression: Alcohol withdrawal Complication of substance-induced condition: uncomplicated Qualified Code: F10.230 - Alcohol dependence with withdrawal, uncomplicated Additional Impressions: Alcohol intoxication Complication of substance-induced condition: uncomplicated Qualified Code: F10.120 - Alcohol abuse with intoxication, uncomplicated Alcohol abuse Disposition: Home Discharge Condition All VS Reviewed: Yes Condition: Stable Patient Instructions: Alcohol Intoxication (ED) Additional Instructions: Meet your Mixer Attendant as planned at [email or web address]. Proceed to [place], catch the ferry to [place], and go directly to the emergency room at [facility] as planned. [facility] is still holding your bed!They will take care of doing a medical screening and give you the appropriate prescription for you to go to [facility]. If you alcohol level is too high you will not be able to go, so do not drink on the way. Good luck. Referrals: Chandni Mcclure DO (PCP) Roryibjerri Attestation Portions of this note were transcribed by Melita Nelson. I, Dr. Kauffman personally performed the history, physical exam and medical decision-making; I reviewed and confirmed the accuracy of the information in the transcribed note. Signed by: Ewa Lay, 06/30/2016 0422 copies to: Chandni Mcclure Howard L MD Jun 29, 2016 23:55 Melita Nelson Jun 30, 2016 00:01
[2016-06-30 00:42] LABS: BASOPHILS % (AUTO) 0.5 % (0-3); EOSINOPHILS % (AUTO) 0.5 % (0-5); MONOCYTES % (AUTO) 8.7 % (4-12); Mean Corpuscular Hemoglobin 29.9 pg (27.0-35.0); Mean Corpuscular Volume 87.4 fL (81-100); Platelet Count 102 bil/L (150-400)
[2016-06-30 01:18] LABS: Magnesium 1.7 mg/dL (1.6-2.6)
[2016-06-30 04:22] VITALS: BP 151/86; PULSE 84; RESP 18; O2SAT 94
== END 2016-06-30 04:25 | disposition home or self-care (01) ==
LOC: SED 23:09
DX: F10.230 Alcohol dependence with withdrawal, uncomplicated (principal); F10.120 Alcohol abuse with intoxication, uncomplicated; E11.9 Type 2 diabetes mellitus without complications; I10 Essential (primary) hypertension; K21.9 Gastro-esophageal reflux disease without esophagitis; Z88.0 Allergy status to penicillin; Z88.5 Allergy status to narcotic agent; Z88.6 Allergy status to analgesic agent

== ENCOUNTER 2016-10-01 18:02 | Emergency (ER) | payer OTHER ==
[~2016-10-01] VITALS: Ht 170.2 cm; Wt 88.6 kg
[2016-10-01 18:06] VITALS: BP 135/83; PULSE 112; RESP 18; O2SAT 95
--- NOTE | 2016-10-01 20:27 | ED.REPORT ---
HPI-Psychiatric Illness Date of Service October 01, 2016 ED Provider: Doc,Ed MD The patient is a 61 year old male with history of alcohol abuse with h/o withdrawal seizures and DTs, diabetes mellitus, hypertension, hyperlipidemia, GERD, and chronic pain, who presents to the emergency department requesting help with his alcohol use. He is unable to answer how much he drinks each day. The patient was seen at [facility] this morning for the same. He is upset because he is not able to stay at crisis respite. He states if we send him home he will kill himself by [place] the [place]. He states, "I need Ativan and something for his stomach." He complains of "burning" middle/upper abdominal pain (x5 days), black stools (recent Pepto Bismol use), and nausea. The patient feels like he is going into withdrawal. He denies diarrhea, vomiting , fever, chills, back pain or dysuria. The pt was recently at [facility] for 45 days and drank as soon as he got out. Nursing Notes Stated Complaint: SUICIDAL IDEATION - ASKING FOR US TO HELP HIM Chief Complaint: Psychiatric Complaint Nursing Notes Reviewed: Yes Allergies: Coded Allergies: Penicillins (Verified Allergy, Unknown, RASH, 10/01/16) acetaminophen (Verified Allergy, Unknown, RASH, 10/01/16) codeine (Verified Allergy, Unknown, 10/01/16) hydrocodone (Verified Allergy, Unknown, 10/01/16) oxycodone (Verified Allergy, Unknown, 10/01/16) Scheduled Lisinopril (Lisinopril) 20 Mg Tablet 20 MG PO DAILY Metoprolol Tartrate (Metoprolol Tartrate) 50 Mg Tablet 50 MG PO DAILY Omeprazole (Omeprazole) 40 Mg Capsule.dr 40 MG PO DAILY Omeprazole (Omeprazole) 40 Mg Capsule.dr 40 MG PO DAILY Omeprazole (Omeprazole) 20 Mg Tablet.dr 20 MG PO BID Paroxetine (Paroxetine) 40 Mg Tablet 40 MG PO DAILY Scheduled PRN Ibuprofen (Ibuprofen) 200 Mg Capsule 400 MG PO DAILY PRN PRN For Pain Ibuprofen (Ibuprofen) 600 Mg Tablet 600 MG PO QID PRN PRN For Pain Ibuprofen (Ibuprofen) 600 Mg Tablet 600 MG PO QID PRN PRN For Pain Lorazepam (Lorazepam) 1 Mg Tablet 1 MG PO TID PRN PRN For Anxiety 2 tabs every 4 hr. for 2 d.; then 1 tab. every 4 h.; then 1 every 8 hours for 2 days; then one twice daily Ondansetron ODT (Ondansetron ODT) 8 Mg Tab.rapdis 8 MG PO QID PRN PRN For Nausea General Time Seen by MD: 20:27 Chief Complaint Other (help with alcohol use) Hx Obtained From: Patient Arrived By: Walk-in Onset Occurred: More than a week ago... Symptom Duration: Since onset Progression Since Onset: Constant Severity: Current: No pain currently Severity: Maximum: No pain Recent Healthcare: Recent doctor visit, Recent hospitalization Similar Sx Previous: Yes Risk-Psychiatric Illness Suicide Risk Stratification RF Statements: Risk factors reviewed Past Medical History Past Medical History Notes: Past Medical History ETOH Abuse h/o Seizures and delirium tremens secondary to alcohol withdrawal (by report - long hx of ED visits more recently without seizures for years) Mild Seizure Disorder followed by Dr. Armijo (was on Topamax, D/C'd 01/03 as can contribute to kidney stones, has tolerated Depakote) Anxiety and panic disorder Kidney Stones Patient has horded benzodiazepines with multiple prescriptions from multiple providers H/o mild LFT elevation attributed to ETOH abuse Chronic shoulder pain right and left ("rotator cuff and labrum tear") Chronic hip pain Reports: Diabetes mellitus, GERD, Hyperlipidemia, Hypertension Past Surgical History Umbilical hernia repair. Bilateral inguinal hernia repair. Tonsillectomy. Melanoma removed twice at two different sites. Cystocopy and ureteral stone extraction 12/[address] Kincaid Family History noncontributory Smoking History Never Smoker Social History Alcohol Use: >5 per day Drug Use: THC Other Social History: Poor social support, Frequent ED visitor, Local resident , Homeless Occupation homeless 04/11/2016 Ambulatory Status Independent Review of Systems Constitutional: Denies: Chills, Fever GI: Reports: Abdominal pain, Melena, Nausea, Denies: Diarrhea, Vomiting Psychiatric: Reports: Stress, Suicidal ideation Complete sys rev & neg: except as marked. Male: Denies Dysuria Musculoskeletal: Denies: Back pain Physical Exam Initial Vital Signs Vital Signs (First) Date Time Temp Pulse Resp B/P Pulse Ox O2 Delivery O2 Flow Rate FiO2 10/01/16 18:06 36.4 112 18 135/83 95 Room Air Initial VS: Reviewed, Vital signs abnormal Head / Eyes: Atraumatic, Normocephalic, PERRL ENT: Mucous membranes moist, Conjunctiva normal, No scleral icterus Neck: Supple, Non-tender, Full range of motion Respiratory: Breath sounds normal, Clear to auscultation, No respiratory distress Cardiovascular: Regular rate & rhythm, Heart sounds normal, Intact distal pulses Abdomen / GI: Soft, Non-tender, No guarding, No rebound, No distention Lymphatic: No lymphadenopathy Extremities: Vascular intact, Neuro intact, No swelling, No tenderness Skin: Warm, Dry, No cyanosis General/Constitutional: Awake, Alert Behavior: Positive: Uncooperative Appearance / Presentation: Positive: Intoxicated Smells of alcohol Neurologic: Oriented X3, Speech NL Moving all extremities. No tremor. Abnormal Thinking / Perception: Positive: Suicidal, with plan Rectum / Perineum: Atraumatic, Blood - occult heme -, No gross blood green stool Interpretation & Diagnostics Interpretation & Diagnostics: Breathalyzer: 0.284 Lab Results Interpretation Result Diagram: 10/01/16 2100 10/01/16 2100 Test 10/01/16 21:00 10/01/16 21:03 White Blood Count 5.3th/mm3 (3.8-10.1) Red Blood Count 4.92mil/mm3 (4.40-5.80) Hemoglobin 14.6g/dL (13.8-17.2) Hematocrit 41.5% (41.0-50.0) Mean Corpuscular Volume 84.3fL (81-100) Mean Corpuscular Hemoglobin 29.7pg (27.0-35.0) Mean Corpuscular Hemoglobin Concent 35.2% (32.0-37.0) Red Cell Distribution Width 14.9% (12.3-15.4) Platelet Count 130bil/L (150-400) Neutrophils (%) (Auto) 57.5% (40-74) Lymphocytes (%) (Auto) 36.5% (14-46) Monocytes (%) (Auto) 5.6% (4-12) Eosinophils (%) (Auto) 0.2% (0-5) Basophils (%) (Auto) 0.2% (0-3) Sodium Level 139mEq/L (134-144) Potassium Level 3.0mEq/L (3.5-5.2) Chloride Level 95mEq/L (97-108) Carbon Dioxide Level 21mmol/L (18-29) Blood Urea Nitrogen 11mg/dL (8-27) Creatinine 0.73mg/dL (0.76-1.27) Estimat Glomerular Filtration Rate 116mL/min (>59) Glucose Level 121mg/dL (60-99) Calcium Level 8.8mg/dL (8.5-10.1) Total Bilirubin 0.9mg/dL (0.0-1.2) Aspartate Amino Transf (AST/SGOT) 90U/L (0-50) Alanine Aminotransferase (ALT/SGPT) 25U/L (0-44) Alkaline Phosphatase 73U/L (25-160) Total Protein 7.6g/dL (6.4-8.4) Albumin 4.5g/dL (3.4-5.0) Thyroid Stimulating Hormone (TSH) 0.294uIU/mL (0.450-4.500) Hold Peterson Top Tube Received (Received) Re-Eval/Medical Decision Med Decision/Clinical Course The patient presents intoxicated and suicidal, he was seen earlier today at [facility]. The patient requests stomach medication and Ativan. He does not show signs of withdrawal at this point. The patient will need to be reevaluated for suicidal ideation once he is more sober. Size of patient's abdominal pain as well as concern for peptic ulcer disease versus gastritis versus pancreatitis versus cholecystitis. The patient will be signed out to Dr. Weinstein. Source of Hx: Old records Counseled Regarding: Diagnosis, Lab results Discharge & Departure Shift Change Sign-Out Patient Care Transferred: Yes Discussed Complaint(s): Yes Laboratory Evaluation: Lab evaluation discussed Response to Therapy: Discussed Impression: Primary Impression: Alcohol abuse Additional Impression: Suicidal ideation Discharge Condition All VS Reviewed: Yes Condition: Stable Referrals: Chandni Mcclure DO (PCP) Care Transferred to: Dr. Weinstein Care Transferred at: 00:01 Ewa Attestation Portions of this note were transcribed by Christel Rodriguez. I, Dr. Tafoya personally performed the history, physical exam and medical decision-making; I reviewed and confirmed the accuracy of the information in the transcribed note. Signed by: Ewa Andrews, 10/01/2016 at 0001. copies to: Chandni Mcclure Jena M MD October 01, 2016 20:27 Michael,Christel Payton October 01, 2016 20:35
[2016-10-01] MEDS ORDERED: Ondansetron 8 mg ODT Tablet PO ONE (20:45)
[2016-10-01] MEDS ORDERED: Sucralfate 100 mg/mL 10 mL Suspension PO ONE (20:45)
[2016-10-01] MEDS ORDERED: Pantoprazole 40 mg ER24 Tablet PO ONE (20:45)
[2016-10-01] MEDS ORDERED: LidocaineVisc 2%:Antacid 1:1 10 mL Syringe PO ONE ×2 (20:45→23:35)
[2016-10-01 21:08] LABS: BASOPHILS % (AUTO) 0.2 % (0-3); EOSINOPHILS % (AUTO) 0.2 % (0-5); MONOCYTES % (AUTO) 5.6 % (4-12); Mean Corpuscular Hemoglobin 29.7 pg (27.0-35.0); Mean Corpuscular Volume 84.3 fL (81-100); NEUTROPHILS % (AUTO) 57.5 % (40-74); Platelet Count 130 bil/L (150-400)
[2016-10-01 22:58] VITALS: BP 158/86; PULSE 88; RESP 18; O2SAT 99
[2016-10-02] VITALS (8 sets, daily range): BP systolic 148–191; BP diastolic 78–96; PULSE 84–117; RESP 16–25; O2SAT 96–98
[2016-10-02] MEDS ORDERED: Potassium Chloride 20 mEq SR Tablet PO ONE
[2016-10-02] MEDS ORDERED: Haloperidol 5 mg/mL Inj IM PRN ×2 (02:10→02:40)
[2016-10-02] MEDS ORDERED: diphenhydrAMINE 2.5 mg/mL 5 mL Syrup PO ONE (02:10)
[2016-10-02] MEDS ORDERED: LORazepam 2 mg Tablet PO ONE ×2 (05:35→12:40)
[2016-10-02] MEDS ORDERED: LORA-303 PO (12:47)
== END 2016-10-02 13:10 | disposition home or self-care (01) ==
LOC: SED 18:02
DX: F10.239 Alcohol dependence with withdrawal, unspecified (principal); R45.851 Suicidal ideations; R10.10 Upper abdominal pain, unspecified; R11.0 Nausea; R19.5 Other fecal abnormalities; I10 Essential (primary) hypertension; K21.9 Gastro-esophageal reflux disease without esophagitis; E11.9 Type 2 diabetes mellitus without complications; E78.5 Hyperlipidemia, unspecified; Z59.0 Homelessness; Z88.0 Allergy status to penicillin; Z88.5 Allergy status to narcotic agent; Z88.8 Allergy status to other drugs, medicaments and biological substances
CPT/HCPCS: 36415; 80053; 81002; 82075; 83690; 84443; 85025; 96372; 96374; 96376; 99285; J1630; J2060; J3360

== ENCOUNTER 2016-12-06 17:58 | Emergency (ER) | payer OTHER ==
[~2016-12-06 17:58] MED LIST changes: +LORA-303 PO
[2016-12-06 18:03] VITALS: BP 139/77; PULSE 71; RESP 16; O2SAT 97
--- NOTE | 2016-12-06 19:11 | ED.REPORT ---
HPI-Overdose/Alcohol Toxicity Date of Service Dec 06, 2016 ED Provider: Ro Horner History of Present Illness: has a bed at [facility]. last drink a few hours ago. primary care is russ at the [facility] Takes lisinopril 20 mg paroxetine 40 mg, omeprazole. patient with many medication requests, most provided from different detox locations. Nursing Notes Stated Complaint: DETOX, REFERRAL TO CRISIS Chief Complaint: Substance Abuse Nursing Notes Reviewed: Yes Allergies: Coded Allergies: Penicillins (Verified Allergy, Unknown, RASH, 12/06/16) acetaminophen (Verified Allergy, Unknown, RASH, 12/06/16) codeine (Verified Allergy, Unknown, 12/06/16) hydrocodone (Verified Allergy, Unknown, 12/06/16) oxycodone (Verified Allergy, Unknown, 12/06/16) Scheduled Lisinopril (Lisinopril) 20 Mg Tablet 20 MG PO DAILY Lorazepam (Ativan) 1 Mg Tablet 1 MG PO DIRECTED 2mg po Q6hrs x24hrs, then 1mg po Q6hrs x24hrs, then 1mg po Q8hrs x24hrs, then 1mg po Q12hrs x24hrs, then 1mg PO Metoprolol Tartrate (Metoprolol Tartrate) 50 Mg Tablet 50 MG PO DAILY Omeprazole (Omeprazole) 40 Mg Capsule.dr 40 MG PO DAILY Omeprazole (Omeprazole) 40 Mg Capsule.dr 40 MG PO DAILY Omeprazole (Omeprazole) 20 Mg Tablet.dr 20 MG PO BID Paroxetine (Paroxetine) 40 Mg Tablet 40 MG PO DAILY Scheduled PRN Ibuprofen (Ibuprofen) 200 Mg Capsule 400 MG PO DAILY PRN PRN For Pain Ibuprofen (Ibuprofen) 600 Mg Tablet 600 MG PO QID PRN PRN For Pain Ibuprofen (Ibuprofen) 600 Mg Tablet 600 MG PO QID PRN PRN For Pain Lorazepam (Lorazepam) 1 Mg Tablet 1 MG PO TID PRN PRN For Anxiety 2 tabs every 4 hr. for 2 d.; then 1 tab. every 4 h.; then 1 every 8 hours for 2 days; then one twice daily Ondansetron ODT (Ondansetron ODT) 8 Mg Tab.rapdis 8 MG PO QID PRN PRN For Nausea General Time Seen by Provider: 19:11 Chief Complaint Intoxicated, alcohol Hx Obtained From: Patient Risk-Overdose/Alcohol Tox )( Suicide Risk Stratification : Alcohol use: Prior psych admission: Substance abuseNo: Access to firearms, Close associate suicide, Family Hx of Suicide, Previous attempt RF Statements: Risk factors reviewed Past Medical History Past Medical History ETOH Abuse h/o Seizures and delirium tremens secondary to alcohol withdrawal (by report - long hx of ED visits more recently without seizures for years) Mild Seizure Disorder followed by Dr. Armijo (was on Topamax, D/C'd 01/03 as can contribute to kidney stones, has tolerated Depakote) Anxiety and panic disorder Kidney Stones Patient has horded benzodiazepines with multiple prescriptions from multiple providers H/o mild LFT elevation attributed to ETOH abuse Chronic shoulder pain right and left ("rotator cuff and labrum tear") Chronic hip pain Reports: Diabetes mellitus, GERD, Hyperlipidemia, Hypertension Past Surgical History Umbilical hernia repair. Bilateral inguinal hernia repair. Tonsillectomy. Melanoma removed twice at two different sites. Cystocopy and ureteral stone extraction 12/[address] Kincaid Family History noncontributory Smoking History Never Smoker Social History Alcohol Use: >5 per day Drug Use: THC Other Social History: Poor social support, Frequent ED visitor, Local resident , Homeless Occupation homeless 04/11/2016 Ambulatory Status Independent Review of Systems Basic Review of Systems : No dysuria, No frequency Allergy / Immune: No allergy Physical Exam Initial Vital Signs Vital Signs (First) Date Time Temp Pulse Resp B/P Pulse Ox O2 Delivery O2 Flow Rate FiO2 12/06/16 18:03 36.7 71 16 139/77 97 Room Air Initial VS: Reviewed, Vital signs normal Head / Eyes: Atraumatic, Normocephalic, PERRL ENT: Mucous membranes moist, Conjunctiva normal, No scleral icterus Neck: Supple, Non-tender, Full range of motion Back: No CVA tenderness Lymphatic: No lymphadenopathy Extremities: Vascular intact, Neuro intact, No swelling, No tenderness Skin: Warm, Dry, No cyanosis General/Constitutional: Awake, Alert, No acute distress, Well appearing, Well developed, Well hydrated, Well nourished, Cooperative, Not toxic appearing patient wakes easily, ate dinner without difficulty, sleeping but arouses easy. Respiratory / Chest: Atraumatic, Breath sounds NL, Breath sounds = bilat, No respiratory distress Cardiovascular: Heart rate NL, Regular rhythm, Heart sounds NL, No gallop Abdomen: Atraumatic, Soft, Non-tender Neurologic: Oriented X3, Speech NL, No motor deficits Psychiatric: Affect NL, Mood NL, Not suicidal, Not homicidal, No hallucinations Re-Eval/Medical Decision Med Decision/Clinical Course 61 year old male presents for alcohol treatment. States he has a bed in [facility]. Patient is not in withdrawal at this time, sleeping peacefully. Exam is normal, awaiting final approval from [facility]. Care turned over to Dr. Muller Discharge & Departure Impression: Primary Impression: Alcohol abuse Patient Instructions: Abuse of Alcohol (ED) Additional Instructions: You have been accepted at [facility]. Work on staying sober 1 day at a time. Please follow with primary care as needed. Take the ativan as directed. Referrals: Chandni Mcclure DO (PCP) EDSupervising Provider for APC: Nacho Muller DO copies to: Chandni Mcclure Sue ARNP Dec 06, 2016 19:11
[2016-12-06] MEDS ORDERED: _LORazepam 2 MG Tablet PO SCH (19:20)
[2016-12-06 21:19] VITALS: BP 139/77; PULSE 71; RESP 16; O2SAT 97
== END 2016-12-06 21:15 ==
LOC: SED 17:58
DX: F10.10 Alcohol abuse, uncomplicated (principal); F41.9 Anxiety disorder, unspecified; E11.9 Type 2 diabetes mellitus without complications; K21.9 Gastro-esophageal reflux disease without esophagitis; E78.5 Hyperlipidemia, unspecified; I10 Essential (primary) hypertension; Z87.442 Personal history of urinary calculi; Z59.0 Homelessness; Z88.0 Allergy status to penicillin; Z88.6 Allergy status to analgesic agent; Z88.5 Allergy status to narcotic agent

== ENCOUNTER 2016-12-23 15:45 | Emergency (ER) | payer OTHER ==
[~2016-12-23] VITALS: Ht 170.2 cm; Wt 88.6 kg
[2016-12-23 15:48] VITALS: BP 163/89; PULSE 84; RESP 18; O2SAT 97
== END 2016-12-23 16:27 | disposition left against medical advice (07) ==
LOC: SED 15:45
DX: Z53.21 Procedure and treatment not carried out due to patient leaving prior to being seen by health care provider (principal)

== ENCOUNTER 2016-12-23 19:40 | Emergency (ER) | payer OTHER ==
[~2016-12-23] VITALS: Ht 170.2 cm; Wt 88.6 kg
[2016-12-23 19:43] VITALS: BP 156/87; PULSE 80; RESP 20; O2SAT 98
--- NOTE | 2016-12-23 21:43 | ED.REPORT ---
HPI-General Illness Date of Service Dec 23, 2016 ED Provider: Tal Craig MD Pt is a 61 year old male with a hx of EtOH abuse, DM, HTN and hyperlipidemia presenting to the ED to be cleared for detox. Pt is well known to the department for frequent visits due to alcohol abuse. He reports that he has a bed available at [facility] at 0100 today. He states that he will then be going to [facility]. Denies chest pain, abdominal pain, hematemesis, nausea, or vomiting. No other complaints at present. Pt drank alcohol recently, blood alcohol in the ED was 0.88. Nursing Notes Stated Complaint: DETOX Chief Complaint: Substance Abuse Nursing Notes Reviewed: Yes Allergies: Coded Allergies: Penicillins (Verified Allergy, Unknown, RASH, 12/23/16) acetaminophen (Verified Allergy, Unknown, RASH, 12/23/16) codeine (Verified Allergy, Unknown, 12/23/16) hydrocodone (Verified Allergy, Unknown, 12/23/16) oxycodone (Verified Allergy, Unknown, 12/23/16) Scheduled Lisinopril (Lisinopril) 20 Mg Tablet 20 MG PO DAILY Lorazepam (Ativan) 1 Mg Tablet 1 MG PO DIRECTED 2mg po Q6hrs x24hrs, then 1mg po Q6hrs x24hrs, then 1mg po Q8hrs x24hrs, then 1mg po Q12hrs x24hrs, then 1mg PO Metoprolol Tartrate (Metoprolol Tartrate) 50 Mg Tablet 50 MG PO DAILY Omeprazole (Omeprazole) 40 Mg Capsule. 40 MG PO DAILY Omeprazole (Omeprazole) 40 Mg Capsule. 40 MG PO DAILY Omeprazole (Omeprazole) 20 Mg Tablet.dr 20 MG PO BID Paroxetine (Paroxetine) 40 Mg Tablet 40 MG PO DAILY Scheduled PRN Ibuprofen (Ibuprofen) 200 Mg Capsule 400 MG PO DAILY PRN PRN For Pain Ibuprofen (Ibuprofen) 600 Mg Tablet 600 MG PO QID PRN PRN For Pain Ibuprofen (Ibuprofen) 600 Mg Tablet 600 MG PO QID PRN PRN For Pain Lorazepam (Lorazepam) 1 Mg Tablet 1 MG PO TID PRN PRN For Anxiety 2 tabs every 4 hr. for 2 d.; then 1 tab. every 4 h.; then 1 every 8 hours for 2 days; then one twice daily Ondansetron ODT (Ondansetron ODT) 8 Mg Tab.rapdis 8 MG PO QID PRN PRN For Nausea General Time Seen by MD: 21:41 Chief Complaint Other (Substance abuse) Hx Obtained From: Patient Arrived By: Walk-in Sudden in Onset?: No Onset Occurred: Onset unknown Context of Onset: EtOH use Symptom Duration: Since onset Severity: Current: No pain currently Severity: Maximum: No pain Recent Healthcare: Recent doctor visit Similar Sx Previous: Yes Past Medical History Past Medical History ETOH Abuse h/o Seizures and delirium tremens secondary to alcohol withdrawal (by report - long hx of ED visits more recently without seizures for years) Mild Seizure Disorder followed by Dr. Armijo (was on Topamax, D/C'd 01/03 as can contribute to kidney stones, has tolerated Depakote) Anxiety and panic disorder Kidney Stones Patient has horded benzodiazepines with multiple prescriptions from multiple providers H/o mild LFT elevation attributed to ETOH abuse Chronic shoulder pain right and left ("rotator cuff and labrum tear") Chronic hip pain Reports: Diabetes mellitus, GERD, Hyperlipidemia, Hypertension Past Surgical History Umbilical hernia repair. Bilateral inguinal hernia repair. Tonsillectomy. Melanoma removed twice at two different sites. Cystocopy and ureteral stone extraction 12/[address] Kincaid Family History noncontributory Smoking History Never Smoker Social History Alcohol Use: >5 per day Drug Use: THC Other Social History: Poor social support, Frequent ED visitor, Local resident , Homeless Occupation homeless 04/11/2016 Ambulatory Status Independent Review of Systems Alcohol abuse Full Review of Systems Cardiovascular: Denies: Chest pain GI: Denies: Abdominal pain, Hematemesis, Nausea, Vomiting Complete sys rev & neg: except as marked. Physical Exam Vital Signs Vital Signs Date Time Temp Pulse Resp B/P Pulse Ox O2 Delivery O2 Flow Rate FiO2 12/24/16 00:35 36.6 90 18 128/78 98 Room Air 12/23/16 19:43 36.5 80 20 156/87 98 Room Air Initial VS: Reviewed General/Constitutional: Well-developed, Well-nourished Head / Eyes: Atraumatic, Normocephalic, PERRL ENT: Mucous membranes moist, Conjunctiva normal, No scleral icterus Respiratory: Breath sounds normal, Clear to auscultation, No respiratory distress Extremities: Vascular intact, Neuro intact, No swelling, No tenderness Skin: Warm, Dry, No cyanosis Neurologic: Alert, Oriented, Nonfocal Psychiatric: Mood/affect normal, Behavior normal, Normal thought content Cardiovascular: Heart rate NL, Regular rhythm, Heart sounds NL, No gallop, No murmurs, No rubs Abdomen: Atraumatic, Soft, Non-tender, BS normoactive Re-Eval/Medical Decision Time of Eval: 21:51 Patient Status: Condition improved Re-Evaluation/Progress Note: Discussed plan for discharge to Crisis. Pt understands and agrees. Counseled Regarding: Diagnosis, Lab results, Need for follow-up, When/why to return to ED Discharge & Departure Primary Impression: Alcohol abuse Disposition: Home Discharge Condition All VS Reviewed: Yes Condition: Improved Additional Instructions: Patient is cleared for Crisis Respite and is discharged with Lorazepam taper as prescribed. Ondansetron as needed. Referrals: Chandni Mcclure DO (PCP) Ewa Attestation Portions of this note were transcribed by Nicole Gregory. I, Dr. Craig personally performed the history, physical exam and medical decision-making; I reviewed and confirmed the accuracy of the information in the transcribed note. Signed by : Ewa Sepulveda, 12/23/2016. copies to: Chandni Mcclure Donald L MD Dec 23, 2016 21:43 NICOLE GREGORY Dec 23, 2016 21:50
[2016-12-23] MEDS ORDERED: _LORazepam 2 MG Tablet PO SCH (21:50)
[2016-12-23] MEDS ORDERED: _Ondansetron ODT 4 mg Tablet PO PRN (21:50)
[2016-12-24 00:35] VITALS: BP 128/78; PULSE 90; RESP 18; O2SAT 98
[2016-12-24] MEDS ORDERED: LORazepam 1 mg Tablet PO ONE (00:40)
== END 2016-12-24 00:44 | disposition home or self-care (01) ==
LOC: SED 19:40
DX: F10.129 Alcohol abuse with intoxication, unspecified (principal); Y90.0 Blood alcohol level of less than 20 mg/100 ml; I10 Essential (primary) hypertension; K21.9 Gastro-esophageal reflux disease without esophagitis; E11.9 Type 2 diabetes mellitus without complications; E78.5 Hyperlipidemia, unspecified; F41.9 Anxiety disorder, unspecified; Z87.442 Personal history of urinary calculi; Z98.890 Other specified postprocedural states; Z59.0 Homelessness; Z88.0 Allergy status to penicillin; Z88.5 Allergy status to narcotic agent; Z88.8 Allergy status to other drugs, medicaments and biological substances

== ENCOUNTER → 2016-12-28 17:41 | Emergency (ER) | payer OTHER | END | disposition left against medical advice (07) | LOC: SED 17:41 | DX: Z53.21 Procedure and treatment not carried out due to patient leaving prior to being seen by health care provider (principal) ==

== ENCOUNTER 2016-12-29 01:25 | Emergency (ER) | payer OTHER ==
[~2016-12-29] VITALS: Ht 170.2 cm; Wt 86.4 kg
[2016-12-29 01:35] VITALS: BP 118/73; PULSE 64; RESP 18; O2SAT 95
--- NOTE | 2016-12-29 01:49 | ED.REPORT ---
HPI-General Illness Date of Service Dec 29, 2016 ED Provider: Nacho Muller DO Patient is a 61 year old male with a history of alcohol abuse, hypertension and diabetes who presents to the ED stating he is supposed to go to [facility]. He reports that his last drink was just prior to arrival to the ED. Patient just left Crisis a few hours ago.He has no other complaints at this time and would like to be medically cleared for N. Nursing Notes Stated Complaint: ALCOHOL DETOX Chief Complaint: Substance Abuse Nursing Notes Reviewed: Yes Allergies: Coded Allergies: Penicillins (Verified Allergy, Unknown, RASH, 12/29/16) acetaminophen (Verified Allergy, Unknown, RASH, 12/29/16) codeine (Verified Allergy, Unknown, 12/29/16) hydrocodone (Verified Allergy, Unknown, 12/29/16) oxycodone (Verified Allergy, Unknown, 12/29/16) Scheduled Lisinopril (Lisinopril) 20 Mg Tablet 20 MG PO DAILY Lorazepam (Ativan) 1 Mg Tablet 1 MG PO DIRECTED 2mg po Q6hrs x24hrs, then 1mg po Q6hrs x24hrs, then 1mg po Q8hrs x24hrs, then 1mg po Q12hrs x24hrs, then 1mg PO Metoprolol Tartrate (Metoprolol Tartrate) 50 Mg Tablet 50 MG PO DAILY Omeprazole (Omeprazole) 40 Mg Capsule. 40 MG PO DAILY Omeprazole (Omeprazole) 40 Mg Capsule.dr 40 MG PO DAILY Omeprazole (Omeprazole) 20 Mg Tablet.dr 20 MG PO BID Paroxetine (Paroxetine) 40 Mg Tablet 40 MG PO DAILY Scheduled PRN Ibuprofen (Ibuprofen) 200 Mg Capsule 400 MG PO DAILY PRN PRN For Pain Ibuprofen (Ibuprofen) 600 Mg Tablet 600 MG PO QID PRN PRN For Pain Ibuprofen (Ibuprofen) 600 Mg Tablet 600 MG PO QID PRN PRN For Pain Lorazepam (Lorazepam) 1 Mg Tablet 1 MG PO TID PRN PRN For Anxiety 2 tabs every 4 hr. for 2 d.; then 1 tab. every 4 h.; then 1 every 8 hours for 2 days; then one twice daily Ondansetron ODT (Ondansetron ODT) 8 Mg Tab.rapdis 8 MG PO QID PRN PRN For Nausea General Time Seen by MD: 01:49 Chief Complaint Medical clearance Hx Obtained From: Patient Arrived By: Walk-in Sudden in Onset?: No Recent Healthcare: Recent doctor visit Similar Sx Previous: Yes Past Medical History Past Medical History ETOH Abuse h/o Seizures and delirium tremens secondary to alcohol withdrawal (by report - long hx of ED visits more recently without seizures for years) Mild Seizure Disorder followed by Dr. Armijo (was on Topamax, D/C'd 01/03 as can contribute to kidney stones, has tolerated Depakote) Anxiety and panic disorder Kidney Stones Patient has horded benzodiazepines with multiple prescriptions from multiple providers H/o mild LFT elevation attributed to ETOH abuse Chronic shoulder pain right and left ("rotator cuff and labrum tear") Chronic hip pain Reports: Diabetes mellitus, GERD, Hyperlipidemia, Hypertension Past Surgical History Umbilical hernia repair. Bilateral inguinal hernia repair. Tonsillectomy. Melanoma removed twice at two different sites. Cystocopy and ureteral stone extraction 12/[address] Kincaid Family History noncontributory Smoking History Never Smoker Social History Alcohol Use: >5 per day Drug Use: THC Other Social History: Poor social support, Frequent ED visitor, Local resident , Homeless Occupation homeless 04/11/2016 Ambulatory Status Independent Review of Systems Full Review of Systems Constitutional: Denies: Chills, Fever Respiratory: Denies: Non-productive cough, Shortness of breath Cardiovascular: Denies: Chest pain GI: Denies: Abdominal pain, Nausea, Vomiting Skin: Denies Itching, Denies Rash Neurologic: Denies: Abnormal movement, Dizziness (Mr. Snyder denies head trauma, head injury or any recent falls.), Lightheaded, Numbness, Problem walking, Weakness Complete sys rev & neg: except as marked. Physical Exam Vital Signs Vital Signs Date Time Temp Pulse Resp B/P Pulse Ox O2 Delivery O2 Flow Rate FiO2 12/29/16 01:35 36.8 64 18 118/73 95 Room Air Initial VS: Reviewed General/Constitutional: Awake, Alert, No acute distress Behavior: Positive: Appears intoxicated Head / Eyes: Atraumatic, Normocephalic, PERRL, EOMI Respiratory / Chest: Atraumatic, Breath sounds NL, Breath sounds = bilat, No respiratory distress Cardiovascular: Heart rate NL, Regular rhythm, Heart sounds NL Abdomen: Atraumatic, Soft Skin: Atraumatic, Color NL, No rash, Warm, Dry Neurologic: Oriented X3, CN II - XII intact speech slurred Re-Eval/Medical Decision Med Decision/Clinical Course Plan to observe until patient kailash up then transfer to [facility] where he can detox. Signs of trauma. He is at multiple biochemical workups. He needs to sober up and go to [facility]. He will be observed in the emergency department to use overnight for discharge. Dr. Weinstein is aware that he will be observed until sobriety and discharge. Time of Eval: 02:08 Re-Evaluation/Progress Note: Discussed plan to transfer to [facility] once patient kailash up. Patient understands and agrees to plan. All questions were addressed. Counseled Regarding: Diagnosis, Lab results, Need for transfer Discharge & Departure Primary Impression: Alcohol abuse Additional Impression: Acute alcohol intoxication Complication of substance-induced condition: uncomplicated Qualified Code: F10.120 - Alcohol abuse with intoxication, uncomplicated Disposition: Home Discharge Condition All VS Reviewed: Yes Condition: Stable Patient Instructions: Abuse of Alcohol (ED) Additional Instructions: Go straight to [facility]. Stop drinking alcohol. Follow up with your primary care physician. Return to the emergency department if you develop any new or concerning symptoms. Referrals: Chandni Mcclure DO (PCP) [place] Attestation Portions of this note were transcribed by Flower Bardales. I, Dr. Muller personally performed the history, physical exam and medical decision-making; I reviewed and confirmed the accuracy of the information in the transcribed note. Signed by: Ewa Vaughan, 12/28/16 copies to: Chandni Mcclure Todd P DO Dec 29, 2016 01:49 Nancy Bardales Dec 29, 2016 01:58
[2016-12-29] MEDS ORDERED: chlordiazePOXIDE 25 mg Capsule PO ONE (06:00)
[2016-12-29 06:16] VITALS: BP 129/75; PULSE 85; RESP 16; O2SAT 97
== END 2016-12-29 06:18 | disposition home or self-care (01) ==
LOC: SED 01:25
DX: F10.120 Alcohol abuse with intoxication, uncomplicated (principal); I10 Essential (primary) hypertension; K21.9 Gastro-esophageal reflux disease without esophagitis; E11.9 Type 2 diabetes mellitus without complications; E78.5 Hyperlipidemia, unspecified; F41.9 Anxiety disorder, unspecified; Z87.442 Personal history of urinary calculi; Z98.890 Other specified postprocedural states; Z59.0 Homelessness; Z88.0 Allergy status to penicillin; Z88.5 Allergy status to narcotic agent; Z88.6 Allergy status to analgesic agent

== ENCOUNTER 2016-12-29 15:27 | Emergency (ER) | payer OTHER ==
[~2016-12-29] VITALS: Ht 170.2 cm; Wt 88.6 kg
[2016-12-29 15:30] VITALS: BP 155/89; PULSE 76; RESP 16; O2SAT 98
--- NOTE | 2016-12-29 15:52 | ED.REPORT ---
HPI-General Illness Date of Service Dec 29, 2016 ED Provider: Dr. Augustin Anderson MD A 61 year old male with a history of alcohol abuse, multiple ED visits for alcoholism, hypertension and diabetes mellitus presents to the ED seeking detox. The patient was seen in the ED on 12/29 seeking medical clearance for [facility] after leaving [facility]. He was discharged in stable condition to [facility]. He presents to the ED this afternoon because [facility] was unable to provide the patient with a bed. The patient is currently asymptomatic and denies any medical complaints at this time. Nursing Notes Stated Complaint: SUBSTANCE ABUSE Chief Complaint: Substance Abuse Nursing Notes Reviewed: Yes Allergies: Coded Allergies: Penicillins (Verified Allergy, Unknown, RASH, 12/29/16) acetaminophen (Verified Allergy, Unknown, RASH, 12/29/16) codeine (Verified Allergy, Unknown, 12/29/16) hydrocodone (Verified Allergy, Unknown, 12/29/16) oxycodone (Verified Allergy, Unknown, 12/29/16) Scheduled Lisinopril (Lisinopril) 20 Mg Tablet 20 MG PO DAILY Lorazepam (Ativan) 1 Mg Tablet 1 MG PO DIRECTED 2mg po Q6hrs x24hrs, then 1mg po Q6hrs x24hrs, then 1mg po Q8hrs x24hrs, then 1mg po Q12hrs x24hrs, then 1mg PO Metoprolol Tartrate (Metoprolol Tartrate) 50 Mg Tablet 50 MG PO DAILY Omeprazole (Omeprazole) 40 Mg Capsule. 40 MG PO DAILY Omeprazole (Omeprazole) 40 Mg Capsule. 40 MG PO DAILY Omeprazole (Omeprazole) 20 Mg Tablet. 20 MG PO BID Paroxetine (Paroxetine) 40 Mg Tablet 40 MG PO DAILY Scheduled PRN Ibuprofen (Ibuprofen) 200 Mg Capsule 400 MG PO DAILY PRN PRN For Pain Ibuprofen (Ibuprofen) 600 Mg Tablet 600 MG PO QID PRN PRN For Pain Ibuprofen (Ibuprofen) 600 Mg Tablet 600 MG PO QID PRN PRN For Pain Lorazepam (Lorazepam) 1 Mg Tablet 1 MG PO TID PRN PRN For Anxiety 2 tabs every 4 hr. for 2 d.; then 1 tab. every 4 h.; then 1 every 8 hours for 2 days; then one twice daily Ondansetron ODT (Ondansetron ODT) 8 Mg Tab.rapdis 8 MG PO QID PRN PRN For Nausea General Time Seen by MD: 15:52 Chief Complaint Other (Detox) Hx Obtained From: Patient Arrived By: Walk-in Sudden in Onset?: No Onset Occurred: Yesterday Context of Onset: EtOH use Symptom Duration: Since onset Pertinent Negative: Pt denies other symptoms Recent Healthcare: No recent hospitalization, Recent doctor visit Past Medical History Past Medical History ETOH Abuse h/o Seizures and delirium tremens secondary to alcohol withdrawal (by report - long hx of ED visits more recently without seizures for years) Mild Seizure Disorder followed by Dr. Armijo (was on Topamax, D/C'd 01/03 as can contribute to kidney stones, has tolerated Depakote) Anxiety and panic disorder Kidney Stones Patient has horded benzodiazepines with multiple prescriptions from multiple providers H/o mild LFT elevation attributed to ETOH abuse Chronic shoulder pain right and left ("rotator cuff and labrum tear") Chronic hip pain Reports: Diabetes mellitus, GERD, Hyperlipidemia, Hypertension Past Surgical History Umbilical hernia repair. Bilateral inguinal hernia repair. Tonsillectomy. Melanoma removed twice at two different sites. Cystocopy and ureteral stone extraction 12/[address] Kincaid Family History noncontributory Smoking History Never Smoker Social History Alcohol Use: >5 per day Drug Use: THC Other Social History: Poor social support, Frequent ED visitor, Local resident , Homeless Occupation homeless 04/11/2016 Ambulatory Status Independent Review of Systems Denies any medical complaints at this time. Pt is currently asymptomatic. Complete sys rev & neg: except as marked. Physical Exam Vital Signs Vital Signs Date Time Temp Pulse Resp B/P Pulse Ox O2 Delivery O2 Flow Rate FiO2 12/29/16 15:30 36.9 76 16 155/89 98 Room Air Initial VS: Reviewed Neck: Supple, Non-tender, Full range of motion Extremities: Vascular intact, Neuro intact, No swelling, No tenderness Skin: Warm, Dry, No cyanosis Neurologic: Alert, Oriented, Nonfocal Psychiatric: Mood/affect normal, Behavior normal, Normal thought content General/Constitutional: Awake, Alert, No acute distress Pt is currently laying on the floor. Head / Eyes: Atraumatic, Normocephalic Respiratory / Chest: Atraumatic, No respiratory distress Cardiovascular: Peripheral circulation NL, Pulses = bilaterally Abdomen: Atraumatic, Soft Neurologic: No motor deficits, No sensory deficits Movement Abnormality: Negative: Tremor Re-Eval/Medical Decision Med Decision/Clinical Course 61-year-old male history of alcohol abuse and withdrawal seizures here requesting detox. shop worker contacted crisis resp[facility] and there were no beds available. Patient got angry and left. Time of Eval: 16:04 Re-Evaluation/Progress Note: Pt is informed of the lack of available beds for him. He becomes frustrated and leaves without any discharge paperwork or instructions. Counseled Regarding: Diagnosis, Need for follow-up, When/why to return to ED Discharge & Departure Primary Impression: Alcoholism /alcohol abuse Disposition: Home Discharge Condition All VS Reviewed: Yes Condition: Improved Patient Instructions: Abuse of Alcohol (ED) Additional Instructions: Thank you for trusting us with your care this afternoon. [facility] does not have any available beds today. Please call your counselor at [facility] to check for available resources, potentially [facility]. ([phone]) Please abstain from any alcohol use. Please return to the emergency department for any new or worsening conditions including any high fevers, shaking chills, uncontrollable nausea/vomiting, excessive sweating, chest pain, shortness or breath, numbness/tingling or lightheadedness. Referrals: Chandni Mcclure DO (PCP) [facility] Scribe Attestation Portions of this note were transcribed by Leyda Hensley. I, Dr. Anderson personally performed the history, physical exam and medical decision-making; I reviewed and confirmed the accuracy of the information in the transcribed note. copies to: Chandni Mcclure Ben M MD Dec 29, 2016 15:52 LEYDA HENSLEY Dec 29, 2016 15:56
== END 2016-12-29 17:27 | disposition home or self-care (01) ==
LOC: SED 15:27
DX: F10.20 Alcohol dependence, uncomplicated (principal); I10 Essential (primary) hypertension; E11.9 Type 2 diabetes mellitus without complications; F41.9 Anxiety disorder, unspecified; K21.9 Gastro-esophageal reflux disease without esophagitis; E78.5 Hyperlipidemia, unspecified; Z59.0 Homelessness; Z88.0 Allergy status to penicillin; Z87.442 Personal history of urinary calculi; Z88.6 Allergy status to analgesic agent; Z88.5 Allergy status to narcotic agent

== ENCOUNTER 2016-12-29 18:27 | Emergency (ER) | payer OTHER ==
[2016-12-29 19:24] VITALS: BP 167/80; PULSE 110; RESP 16; O2SAT 100
[2016-12-29] MEDS ORDERED: _LORazepam 2 MG Tablet PO SCH (21:05)
--- NOTE | 2016-12-29 21:08 | ED.REPORT ---
HPI-General Illness Date of Service Dec 29, 2016 ED Provider: Augustin Anderson MD A 61 year old male with a history of alcohol abuse, multiple ED visits for alcoholism, hypertension and diabetes mellitus presents to the ED seeking medical clearance for [facility]. The patient was seen in the ED twice on seeking medical clearance and detox for alcohol. The patient presents to the ED this evening after his [facility] counselor was able to find placement at Crisis. He states that he last drank 1 hour ago. He reportedly drinks a 6 pack of beer or a quart of vodka everyday. The patient is currently asymptomatic and denies any medical complaints at this time. Nursing Notes Stated Complaint: CLEARANCE FOR [facility] Chief Complaint: Substance Abuse Nursing Notes Reviewed: Yes Allergies: Coded Allergies: Penicillins (Verified Allergy, Unknown, RASH, 12/29/16) acetaminophen (Verified Allergy, Unknown, RASH, 12/29/16) codeine (Verified Allergy, Unknown, 12/29/16) hydrocodone (Verified Allergy, Unknown, 12/29/16) oxycodone (Verified Allergy, Unknown, 12/29/16) Scheduled Lisinopril (Lisinopril) 20 Mg Tablet 20 MG PO DAILY Lorazepam (Ativan) 1 Mg Tablet 1 MG PO DIRECTED 2mg po Q6hrs x24hrs, then 1mg po Q6hrs x24hrs, then 1mg po Q8hrs x24hrs, then 1mg po Q12hrs x24hrs, then 1mg PO Metoprolol Tartrate (Metoprolol Tartrate) 50 Mg Tablet 50 MG PO DAILY Omeprazole (Omeprazole) 40 Mg Capsule. 40 MG PO DAILY Omeprazole (Omeprazole) 40 Mg Capsule.dr 40 MG PO DAILY Omeprazole (Omeprazole) 20 Mg Tablet. 20 MG PO BID Paroxetine (Paroxetine) 40 Mg Tablet 40 MG PO DAILY Scheduled PRN Ibuprofen (Ibuprofen) 200 Mg Capsule 400 MG PO DAILY PRN PRN For Pain Ibuprofen (Ibuprofen) 600 Mg Tablet 600 MG PO QID PRN PRN For Pain Ibuprofen (Ibuprofen) 600 Mg Tablet 600 MG PO QID PRN PRN For Pain Lorazepam (Lorazepam) 1 Mg Tablet 1 MG PO TID PRN PRN For Anxiety 2 tabs every 4 hr. for 2 d.; then 1 tab. every 4 h.; then 1 every 8 hours for 2 days; then one twice daily Ondansetron ODT (Ondansetron ODT) 8 Mg Tab.rapdis 8 MG PO QID PRN PRN For Nausea General Time Seen by MD: 21:05 Chief Complaint Medical clearance Hx Obtained From: Patient Arrived By: Walk-in Sudden in Onset?: No Onset Occurred: Yesterday Symptom Duration: Since onset Pertinent Negative: Pt denies other symptoms Recent Healthcare: No recent hospitalization, Recent doctor visit Past Medical History Past Medical History ETOH Abuse h/o Seizures and delirium tremens secondary to alcohol withdrawal (by report - long hx of ED visits more recently without seizures for years) Mild Seizure Disorder followed by Dr. Armijo (was on Topamax, D/C'd 01/03 as can contribute to kidney stones, has tolerated Depakote) Anxiety and panic disorder Kidney Stones Patient has horded benzodiazepines with multiple prescriptions from multiple providers H/o mild LFT elevation attributed to ETOH abuse Chronic shoulder pain right and left ("rotator cuff and labrum tear") Chronic hip pain Reports: Diabetes mellitus, GERD, Hyperlipidemia, Hypertension Past Surgical History Umbilical hernia repair. Bilateral inguinal hernia repair. Tonsillectomy. Melanoma removed twice at two different sites. Cystocopy and ureteral stone extraction 12/[address] Kincaid Family History noncontributory Smoking History Never Smoker Social History Alcohol Use: >5 per day Drug Use: THC Other Social History: Poor social support, Frequent ED visitor, Local resident , Homeless Occupation homeless 04/11/2016 Ambulatory Status Independent Review of Systems Asymptomatic Seeking medical clearance Complete sys rev & neg: except as marked. Physical Exam Vital Signs Vital Signs Date Time Temp Pulse Resp B/P Pulse Ox O2 Delivery O2 Flow Rate FiO2 12/29/16 19:24 110 16 167/80 100 Room Air Initial VS: Reviewed Neck: Supple, Non-tender, Full range of motion Extremities: Vascular intact, Neuro intact, No swelling, No tenderness Skin: Warm, Dry, No cyanosis General/Constitutional: Awake, Alert, No acute distress Head / Eyes: Atraumatic, Normocephalic Respiratory / Chest: Atraumatic, No respiratory distress Cardiovascular: Peripheral circulation NL, Pulses = bilaterally Abdomen: Atraumatic, Soft Neurologic: Oriented X3, Speech NL, No motor deficits, No sensory deficits Movement Abnormality: Negative: Tremor Interpretation & Diagnostics Lab Results Interpretation Test 12/29/16 21:14 Hold Urine Received (Received) Drug Screen / Level Interp Urine drug screen neg Re-Eval/Medical Decision Med Decision/Clinical Course 61-year-old male history of alcohol abuse and withdrawal seizures presenting requesting detox. He was seen earlier today and social service worker consulted detox and there are no beds available. Patient then contacted them on his on and was told that they did have a bed available for him. He is here requesting detox bed. In fact they do have a bed available for him at this time. His urine tox is negative. He had no sign symptoms withdrawal. He was discharged with an Ativan prepack to detox. Time of Eval: 21:40 Re-Evaluation/Progress Note: Pt agrees to go to Crisis at 0000 after speaking with the ENVIRONMENTAL SCIENCE PROFESSOR. Counseled Regarding: Diagnosis, Need for follow-up, When/why to return to ED Discharge & Departure Primary Impression: Alcohol abuse Disposition: Home Discharge Condition All VS Reviewed: Yes Condition: Stable Patient Instructions: Abuse of Alcohol (ED) Additional Instructions: There is an available bed a [facility] for you. Please go directly to Crisis at the assigned time (12:00pm). Take Ativan taper as directed. I highly recommend that you abstain from alcohol use. Good luck for your treatment. Referrals: Chandni Mcclure DO (PCP) [facility] Scribe Attestation Portions of this note were transcribed by Leyda Hensley. I, Dr. Anderson personally performed the history, physical exam and medical decision-making; I reviewed and confirmed the accuracy of the information in the transcribed note. Augustin Anderson MD Dec 29, 2016 21:07 LEYDA HENSLEY Dec 29, 2016 21:09
[2016-12-29 23:59] VITALS: BP 158/82; PULSE 99; RESP 16; O2SAT 98
== END 2016-12-30 | disposition home or self-care (01) ==
LOC: SED 18:27
DX: F10.10 Alcohol abuse, uncomplicated (principal); I10 Essential (primary) hypertension; E11.9 Type 2 diabetes mellitus without complications; E78.5 Hyperlipidemia, unspecified; K21.9 Gastro-esophageal reflux disease without esophagitis; G89.29 Other chronic pain; Z59.0 Homelessness; Z88.0 Allergy status to penicillin; Z88.6 Allergy status to analgesic agent; Z88.5 Allergy status to narcotic agent

== ENCOUNTER 2017-01-05 03:35 | Emergency (ER) | payer OTHER ==
[~2017-01-05] VITALS: Ht 170.2 cm; Wt 88.6 kg
[2017-01-05 03:39] VITALS: BP 163/89; PULSE 65; RESP 16; O2SAT 97
--- NOTE | 2017-01-05 03:55 | ED.REPORT ---
HPI-Overdose/Alcohol Toxicity Date of Service Jan 05, 2017 ED Provider: Abhilash Kauffman MD The pt is a 61 y/o male with a hx of alcohol abuse, multiple ED visits for alcoholism, hypertension and diabetes mellitus who presents to the ED requesting Ativan. He has a bed at [facility] and is enrolled in a program at [facility] in [place]. His last drink was an hour ago. Nursing Notes Stated Complaint: DETOX Chief Complaint: Substance Abuse Nursing Notes Reviewed: Yes Allergies: Coded Allergies: Penicillins (Verified Allergy, Unknown, RASH, 12/29/16) acetaminophen (Verified Allergy, Unknown, RASH, 12/29/16) codeine (Verified Allergy, Unknown, 12/29/16) hydrocodone (Verified Allergy, Unknown, 12/29/16) oxycodone (Verified Allergy, Unknown, 12/29/16) Scheduled Lisinopril (Lisinopril) 20 Mg Tablet 20 MG PO DAILY Lorazepam (Ativan) 1 Mg Tablet 1 MG PO DIRECTED 2mg po Q6hrs x24hrs, then 1mg po Q6hrs x24hrs, then 1mg po Q8hrs x24hrs, then 1mg po Q12hrs x24hrs, then 1mg PO Metoprolol Tartrate (Metoprolol Tartrate) 50 Mg Tablet 50 MG PO DAILY Omeprazole (Omeprazole) 40 Mg Capsule.dr 40 MG PO DAILY Omeprazole (Omeprazole) 40 Mg Capsule.dr 40 MG PO DAILY Omeprazole (Omeprazole) 20 Mg Tablet.dr 20 MG PO BID Paroxetine (Paroxetine) 40 Mg Tablet 40 MG PO DAILY Scheduled PRN Ibuprofen (Ibuprofen) 200 Mg Capsule 400 MG PO DAILY PRN PRN For Pain Ibuprofen (Ibuprofen) 600 Mg Tablet 600 MG PO QID PRN PRN For Pain Ibuprofen (Ibuprofen) 600 Mg Tablet 600 MG PO QID PRN PRN For Pain Lorazepam (Lorazepam) 1 Mg Tablet 1 MG PO TID PRN PRN For Anxiety 2 tabs every 4 hr. for 2 d.; then 1 tab. every 4 h.; then 1 every 8 hours for 2 days; then one twice daily Ondansetron ODT (Ondansetron ODT) 8 Mg Tab.rapdis 8 MG PO QID PRN PRN For Nausea General Time Seen by Provider: 03:55 Chief Complaint Other (resquesting ativan) Hx Obtained From: Patient Arrived By: Walk-in Onset Occurred: Just prior to arrival Symptom Duration: Since onset Severity: Current: No pain currently Severity: Maximum: No pain Recent Healthcare: Recent doctor visit Past Medical History Past Medical History ETOH Abuse h/o Seizures and delirium tremens secondary to alcohol withdrawal (by report - long hx of ED visits more recently without seizures for years) Mild Seizure Disorder followed by Dr. Armijo (was on Topamax, D/C'd 01/03 as can contribute to kidney stones, has tolerated Depakote) Anxiety and panic disorder Kidney Stones Patient has horded benzodiazepines with multiple prescriptions from multiple providers H/o mild LFT elevation attributed to ETOH abuse Chronic shoulder pain right and left ("rotator cuff and labrum tear") Chronic hip pain Reports: Diabetes mellitus, GERD, Hyperlipidemia, Hypertension Past Surgical History Umbilical hernia repair. Bilateral inguinal hernia repair. Tonsillectomy. Melanoma removed twice at two different sites. Cystocopy and ureteral stone extraction 12/[address] Kincaid Family History noncontributory Smoking History Never Smoker Social History Alcohol Use: >5 per day Drug Use: THC Other Social History: Poor social support, Frequent ED visitor, Local resident , Homeless Occupation homeless 04/11/2016 Ambulatory Status Independent Review of Systems Reports: requesting Ativan Complete sys rev & neg: except as marked. Physical Exam Initial Vital Signs Vital Signs (First) Date Time Temp Pulse Resp B/P Pulse Ox O2 Delivery O2 Flow Rate FiO2 01/05/17 03:39 36.9 65 16 163/89 97 Room Air Initial VS: Reviewed, Vital signs normal Head / Eyes: Atraumatic, Normocephalic Neck: Supple, Non-tender, Full range of motion Extremities: Vascular intact, Neuro intact, No swelling, No tenderness Skin: Warm, Dry, No cyanosis General/Constitutional: Awake, Alert, Cooperative Smells of alcohol Mild tremor Respiratory / Chest: Atraumatic, No respiratory distress, No wheezing Cardiovascular: Heart rate NL Heart Rate / Rhythm: Negative: Tachycardia Abdomen: Atraumatic, No guarding Neurologic: Oriented X3, Speech NL, No motor deficits, No sensory deficits Psychiatric: Affect NL, Mood NL Interpretation & Diagnostics Lab Results Interpretation Lab Results Interpretation: Alcohol level = 0.099 Re-Eval/Medical Decision Med Decision/Clinical Course Patient presents in early detox ostensibly on his way to [facility] in [place], to be there by 10:30 this morning. His alcohol level is 0.099. He was given Ativan 1 mg and he will make his way to the bus stop to get [place] Source of Hx: Old records Re-Evaluation/Progress : Time of Eval: 04:00 Re-Evaluation/Progress Note: Rechecked pt. Discussed diagnosis and plan to discharge. Pt understands and agrees with the plan. F/U instruction and RTER warning given. All questions addressed. Counseled Regarding: Diagnosis, Need for follow-up, When/why to return to ED Discharge & Departure Impression: Primary Impression: Alcohol withdrawal Complication of substance-induced condition: uncomplicated Qualified Code: F10.230 - Alcohol dependence with withdrawal, uncomplicated )( Condition at Discharge: No danger to self, No danger to others, No suicidal ideation, No homicidal ideation, Clear for alcohol rehab Disposition: Home Discharge Condition All VS Reviewed: Yes Condition: Stable Patient Instructions: Alcohol Withdrawal (ED) Additional Instructions: Go to [facility] as planned. Do not drink any more alcohol. You were given lorazepam 1 mg orally in the emergency room to temporarily assist with withdrawal symptoms. Referrals: Chandni Mcclure DO (PCP) Scribe Attestation Portions of this note were transcribed by Miguel Yeh. I,, personally performed the history,physical exam and medical decision-making;I reviewed and confirmed the accuracy of the information in the transcribed note. Signed by Ewa Reddy. 01/05/17 copies to: Silviano Guzman MD, Abhilash Morocho MD Jan 05, 2017 03:55 Miguel Yeh Jan 05, 2017 04:03
[2017-01-05] MEDS ORDERED: LORazepam 1 mg Tablet PO ONE (04:10)
== END 2017-01-05 04:30 | disposition home or self-care (01) ==
LOC: SED 03:35
DX: F10.230 Alcohol dependence with withdrawal, uncomplicated (principal); F41.9 Anxiety disorder, unspecified; E11.9 Type 2 diabetes mellitus without complications; K21.9 Gastro-esophageal reflux disease without esophagitis; E78.5 Hyperlipidemia, unspecified; I10 Essential (primary) hypertension; Z87.442 Personal history of urinary calculi; Z59.0 Homelessness; Z88.0 Allergy status to penicillin; Z88.5 Allergy status to narcotic agent; Z88.6 Allergy status to analgesic agent

== ENCOUNTER 2017-01-22 04:50 | Emergency (ER) | payer OTHER ==
[~2017-01-22] VITALS: Ht 170.2 cm; Wt 88.6 kg
[2017-01-22 05:01] VITALS: BP 171/90; PULSE 86; RESP 16; O2SAT 99
--- NOTE | 2017-01-22 05:17 | ED.REPORT ---
HPI-General Illness Date of Service Jan 22, 2017 ED Provider: Dr. Weinstein The pt is a 61 y/o male with a hx of alcohol abuse, multiple ED visits for alcoholism, hypertension and diabetes mellitus who presents to the ED complaining of alcohol withdrawal today. He spilled his supply of alcohol intended to get him through the night, and is unable to buy alcohol for another forty-five minutes. He is requesting Ativan. His last drink was 5 hours ago. Nursing Notes Stated Complaint: ALCOHOL WITHDRAWAL Chief Complaint: Substance Abuse Nursing Notes Reviewed: Yes Allergies: Coded Allergies: Penicillins (Verified Allergy, Unknown, RASH, 01/22/17) acetaminophen (Verified Allergy, Unknown, RASH, 01/22/17) codeine (Verified Allergy, Unknown, 01/22/17) hydrocodone (Verified Allergy, Unknown, 01/22/17) oxycodone (Verified Allergy, Unknown, 01/22/17) Scheduled Lisinopril (Lisinopril) 20 Mg Tablet 20 MG PO DAILY Lorazepam (Ativan) 1 Mg Tablet 1 MG PO DIRECTED 2mg po Q6hrs x24hrs, then 1mg po Q6hrs x24hrs, then 1mg po Q8hrs x24hrs, then 1mg po Q12hrs x24hrs, then 1mg PO Metoprolol Tartrate (Metoprolol Tartrate) 50 Mg Tablet 50 MG PO DAILY Omeprazole (Omeprazole) 40 Mg Capsule.dr 40 MG PO DAILY Omeprazole (Omeprazole) 40 Mg Capsule.dr 40 MG PO DAILY Omeprazole (Omeprazole) 20 Mg Tablet.dr 20 MG PO BID Paroxetine (Paroxetine) 40 Mg Tablet 40 MG PO DAILY Scheduled PRN Ibuprofen (Ibuprofen) 200 Mg Capsule 400 MG PO DAILY PRN PRN For Pain Ibuprofen (Ibuprofen) 600 Mg Tablet 600 MG PO QID PRN PRN For Pain Ibuprofen (Ibuprofen) 600 Mg Tablet 600 MG PO QID PRN PRN For Pain Lorazepam (Lorazepam) 1 Mg Tablet 1 MG PO TID PRN PRN For Anxiety 2 tabs every 4 hr. for 2 d.; then 1 tab. every 4 h.; then 1 every 8 hours for 2 days; then one twice daily Ondansetron ODT (Ondansetron ODT) 8 Mg Tab.rapdis 8 MG PO QID PRN PRN For Nausea General Time Seen by MD: 05:16 Chief Complaint Other (alcohol withdrawal) Hx Obtained From: Patient Arrived By: Walk-in Sudden in Onset?: Yes Onset Occurred: 5 - 8 hours ago Symptom Duration: Since onset Severity: Current: No pain currently Severity: Maximum: No pain Recent Healthcare: Recent doctor visit Similar Sx Previous: Yes Past Medical History Past Medical History ETOH Abuse h/o Seizures and delirium tremens secondary to alcohol withdrawal (by report - long hx of ED visits more recently without seizures for years) Mild Seizure Disorder followed by Dr. Armijo (was on Topamax, D/C'd 01/03 as can contribute to kidney stones, has tolerated Depakote) Anxiety and panic disorder Kidney Stones Patient has horded benzodiazepines with multiple prescriptions from multiple providers H/o mild LFT elevation attributed to ETOH abuse Chronic shoulder pain right and left ("rotator cuff and labrum tear") Chronic hip pain Reports: Diabetes mellitus, GERD, Hyperlipidemia, Hypertension Past Surgical History Umbilical hernia repair. Bilateral inguinal hernia repair. Tonsillectomy. Melanoma removed twice at two different sites. Cystocopy and ureteral stone extraction 12/[address] Kincaid Family History noncontributory Smoking History Never Smoker Social History Alcohol Use: >5 per day Drug Use: THC Other Social History: Poor social support, Frequent ED visitor, Local resident , Homeless Occupation homeless 04/11/2016 Ambulatory Status Independent Review of Systems Reports: EtOH withdrawal Complete sys rev & neg: except as marked. Physical Exam Vital Signs Vital Signs Date Time Temp Pulse Resp B/P Pulse Ox O2 Delivery O2 Flow Rate FiO2 01/22/17 05:01 36.7 86 16 171/90 99 Room Air Initial VS: Reviewed Head / Eyes: Atraumatic, Normocephalic Neck: Supple, Non-tender, Full range of motion Respiratory: No respiratory distress Abdomen / GI: No guarding, No distention Neurologic: Alert, Oriented, Nonfocal General/Constitutional: Cooperative Behavior: Positive: Anxious Appearance / Presentation: Positive: Intoxicated ENT: Atraumatic, No facial swelling Upper Extremities Upper Extremity / MS: Atraumatic, Full range of motion, No deformity, Neurologic intact, Vascular intact Lower Extremity / Pelvis / MS: Atraumatic, Full range of motion, No deformity, Neurologic intact, Vascular intact Re-Eval/Medical Decision Med Decision/Clinical Course 61-year-old alcoholic presents requesting Ativan for withdrawal symptoms. His intention is to go and buy alcohol and another forty-five minutes. He was invited to buy alcohol and forty-five minutes, as he has no particular intention quit drinking. Discharged in stable condition. Inquiries made at crisis for possible detox bed at his request, but no bed is available. Source of Hx: Old records Time of Eval: 05:20 Re-Evaluation/Progress Note: Rechecked pt. Discussed diagnosis and plan to discharge. Pt understands and agrees with the plan. F/U instruction and RTER warning given. All questions addressed. Counseled Regarding: Diagnosis, Lab results, Need for follow-up, When/why to return to ED Discharge & Departure Primary Impression: Alcoholism with alcohol dependence Additional Impressions: Alcohol withdrawal Alcohol intoxication Disposition: Home Discharge Condition All VS Reviewed: Yes Condition: Stable Patient Instructions: Alcohol Dependence (ED), Alcohol Use Disorder (ED), Alcohol Withdrawal (ED) Additional Instructions: Buy alcohol at your earliest opportunity. We decide again to quit, let us know. We cannot provide support to bridge you to return to drinking. We can and will supply support for serious attempts to stop drinking. Referrals: Chandni Mcclure DO (PCP) Scribe Attestation Portions of this note were transcribed by Miguel Yeh. I,, personally performed the history,physical exam and medical decision-making;I reviewed and confirmed the accuracy of the information in the transcribed note. Signed by Ewa Reddy. 01/22/17 copies to: Chandni Mcclure Christopher W MD Jan 22, 2017 05:17 Miguel Yeh Jan 22, 2017 05:19
== END 2017-01-22 05:36 | disposition home or self-care (01) ==
LOC: SED 04:50
DX: F10.239 Alcohol dependence with withdrawal, unspecified (principal); I10 Essential (primary) hypertension; K21.9 Gastro-esophageal reflux disease without esophagitis; E78.5 Hyperlipidemia, unspecified; E11.9 Type 2 diabetes mellitus without complications; Z88.0 Allergy status to penicillin; Z88.5 Allergy status to narcotic agent; Z88.6 Allergy status to analgesic agent

== ENCOUNTER 2017-01-23 11:03 | Emergency (ER) | payer OTHER ==
[~2017-01-23] VITALS: Ht 170.2 cm; Wt 88.6 kg
[2017-01-23 11:05] VITALS: BP 179/84; PULSE 92; RESP 18; O2SAT 97
--- NOTE | 2017-01-23 12:11 | ED.REPORT ---
HPI-Medical Clearance Date of Service Jan 23, 2017 ED Provider: Brett Romeo PA-C Shlomo is a 7-year-old male with history of alcohol abuse presenting to emergency Department for medical clearance to alcohol detox. He has a bed arranged at crisis [facility] in [place], and is requesting a Ativan taper. He reports drinking this morning. He denies other symptoms. Nursing Notes Stated Complaint: DETOX,MEDICAL CLEARANCE Chief Complaint: Substance Abuse Nursing Notes Reviewed: Yes Allergies: Coded Allergies: Penicillins (Verified Allergy, Unknown, RASH, 01/22/17) acetaminophen (Verified Allergy, Unknown, RASH, 01/22/17) codeine (Verified Allergy, Unknown, 01/22/17) hydrocodone (Verified Allergy, Unknown, 01/22/17) oxycodone (Verified Allergy, Unknown, 01/22/17) Scheduled Lisinopril (Lisinopril) 20 Mg Tablet 20 MG PO DAILY Lorazepam (Ativan) 1 Mg Tablet 1 MG PO DIRECTED 2mg po Q6hrs x24hrs, then 1mg po Q6hrs x24hrs, then 1mg po Q8hrs x24hrs, then 1mg po Q12hrs x24hrs, then 1mg PO Metoprolol Tartrate (Metoprolol Tartrate) 50 Mg Tablet 50 MG PO DAILY Omeprazole (Omeprazole) 40 Mg Capsule.dr 40 MG PO DAILY Omeprazole (Omeprazole) 40 Mg Capsule.dr 40 MG PO DAILY Omeprazole (Omeprazole) 20 Mg Tablet.dr 20 MG PO BID Paroxetine (Paroxetine) 40 Mg Tablet 40 MG PO DAILY Scheduled PRN Ibuprofen (Ibuprofen) 200 Mg Capsule 400 MG PO DAILY PRN PRN For Pain Ibuprofen (Ibuprofen) 600 Mg Tablet 600 MG PO QID PRN PRN For Pain Ibuprofen (Ibuprofen) 600 Mg Tablet 600 MG PO QID PRN PRN For Pain Lorazepam (Lorazepam) 1 Mg Tablet 1 MG PO TID PRN PRN For Anxiety 2 tabs every 4 hr. for 2 d.; then 1 tab. every 4 h.; then 1 every 8 hours for 2 days; then one twice daily Ondansetron ODT (Ondansetron ODT) 8 Mg Tab.rapdis 8 MG PO QID PRN PRN For Nausea General Time Seen by Provider: 11:58 Chief Complaint : Other (medical clearance) Past Medical History Past Medical History ETOH Abuse h/o Seizures and delirium tremens secondary to alcohol withdrawal (by report - long hx of ED visits more recently without seizures for years) Mild Seizure Disorder followed by Dr. Armijo (was on Topamax, D/C'd 01/03 as can contribute to kidney stones, has tolerated Depakote) Anxiety and panic disorder Kidney Stones Patient has horded benzodiazepines with multiple prescriptions from multiple providers H/o mild LFT elevation attributed to ETOH abuse Chronic shoulder pain right and left ("rotator cuff and labrum tear") Chronic hip pain Reports: Diabetes mellitus, GERD, Hyperlipidemia, Hypertension Past Surgical History Umbilical hernia repair. Bilateral inguinal hernia repair. Tonsillectomy. Melanoma removed twice at two different sites. Cystocopy and ureteral stone extraction 12/[address] Kincaid Family History noncontributory Smoking History Never Smoker Social History Alcohol Use: >5 per day Drug Use: THC Other Social History: Poor social support, Frequent ED visitor, Local resident , Homeless Occupation homeless 04/11/2016 Ambulatory Status Independent Review of Systems General: Denies fever, chills, malaise. HEENT: Denies congestion, headache, sore throat. Respiratory: Denies dyspnea, cough, shortness of breath, wheezing. Cardiovascular: Denies chest pain, palpitations. Gastrointestinal: Denies vomiting, diarrhea, abdominal pain. Genitourinary: Denies frequency, urgency, dysuria, hematuria. Otherwise as noted in HPI. Physical Exam General: Well appearing, well developed, well nourished, no acute distress. Head: Atraumatic, normocephalic. Eyes: No scleral icterus or injection. No discharge. Vision grossly intact. ENT: Voice clear, hearing grossly intact. Respiratory: Regular rate and rhythm. Breath sounds present, clear to auscultation and equal bilaterally. No respiratory distress. No increased work of breathing, speaks in complete sentences. Cardiovascular: Regular rate and rhythm, without murmur, gallop or rub. No pedal edema. Gastrointestinal: Abdomen flat and non-tender without guarding or rebound. Bowel sounds normoactive. Back: Normal to inspection. Skin: Warm and dry. Neurological: Grossly nonfocal. Cranial nerves: Vision grossly intact, PERRL, EOMI. Facial motion symmetrical, sensation to light touch over forehead, maxilla and mandible present and equal B /L. Voice clear and slightly slurred, no drooling/pooling of saliva, uvula rises midline. Psychological: Alert and oriented. Speech appropriate, linear and logical. Behavior appropriate. Slightly slurred speech. Initial Vital Signs Vital Signs (First) Date Time Temp Pulse Resp B/P Pulse Ox O2 Delivery O2 Flow Rate FiO2 01/23/17 11:05 35.8 92 18 179/84 97 Re-Eval/Medical Decision Med Decision/Clinical Course 61-year-old male with a history of homelessness, alcoholism and frequent visits to this department presents seeking medical clearance to alcohol detox in [place]. He has a better range. He reports drinking this morning. He denies symptoms of withdrawal at this time. Physical examination is benign, revealing only slightly slurred speech though the patient is clinically relatively sober. Vital signs are normal. Medical instability is noted the patient is cleared for detox. Ativan taper is forwarded to the treatment facility. Patient is provided with a cab to [place]. Provided emergency return precautions. Patient verbalizes understanding of and consent to plan. Discharge & Departure Impression: Primary Impression: Alcohol abuse Disposition: Home Discharge Condition All VS Reviewed: Yes Condition: Stable Patient Instructions: Abuse of Alcohol (ED) Additional Instructions: Evaluation for medical clearance to alcohol detox in the emergency department includes interview, physical examination both of which revealed no medical instability. Your medically cleared for alcohol detox. I have forwarded a prescription for an Ativan taper to the treatment facility. We have arranged a cab ride for you. Best of luck to you. This will be extremely difficult but well worth it. Return to emergency department for new or worsening symptoms including hallucinations, seizure. Referrals: Chandni Mcclure DO (PCP) EDSupervising Provider for APC: Dennis Fernando MD copies to: Chandni Mcclure Seth PA-C Jan 23, 2017 12:11
== END 2017-01-23 12:40 | disposition home or self-care (01) ==
LOC: SED 11:03
DX: F10.20 Alcohol dependence, uncomplicated (principal); R56.9 Unspecified convulsions; E11.9 Type 2 diabetes mellitus without complications; K21.9 Gastro-esophageal reflux disease without esophagitis; E78.5 Hyperlipidemia, unspecified; I10 Essential (primary) hypertension; F41.9 Anxiety disorder, unspecified; F12.10 Cannabis abuse, uncomplicated; Z85.820 Personal history of malignant melanoma of skin; Z59.0 Homelessness; Z88.0 Allergy status to penicillin; Z88.6 Allergy status to analgesic agent; Z88.5 Allergy status to narcotic agent

== ENCOUNTER 2017-01-31 06:51 | Emergency (ER) | payer OTHER ==
[~2017-01-31] VITALS: Ht 170.2 cm; Wt 88.6 kg
--- NOTE | 2017-01-31 06:55 | ED.REPORT ---
HPI-Overdose/Alcohol Toxicity Date of Service Jan 31, 2017 ED Provider: Blaise Hung Patient is a 61 year old male with a hx of EtOH abuse and frequent ED visits who presents to the ED for medical clearance for a bed at [facility]. He reports that he has a bed at [facility]. Pt also reports suicidal ideation. He states "I have all the pills and I'm ready to kill myself ... if I relapse again." He denies fever, chills, homicidal ideation, or any other symptoms. His last drink was 10-15 min ago. He reports drinking approximately a quart of vodka over the last 24 hours. Nursing Notes Stated Complaint: ALCOHOL DETOX Nursing Notes Reviewed: Yes Allergies: Coded Allergies: Penicillins (Verified Allergy, Unknown, RASH, 01/22/17) acetaminophen (Verified Allergy, Unknown, RASH, 01/22/17) codeine (Verified Allergy, Unknown, 01/22/17) hydrocodone (Verified Allergy, Unknown, 01/22/17) oxycodone (Verified Allergy, Unknown, 01/22/17) Scheduled Lisinopril (Lisinopril) 20 Mg Tablet 20 MG PO DAILY Lorazepam (Ativan) 1 Mg Tablet 1 MG PO DIRECTED 2mg po Q6hrs x24hrs, then 1mg po Q6hrs x24hrs, then 1mg po Q8hrs x24hrs, then 1mg po Q12hrs x24hrs, then 1mg PO Lorazepam (Ativan) 1 Mg Tablet 1 MG PO ASDIRECTED 2mg po q6hrs x 24hr, then 1mg po q6hrs x 24hr, then 1mg po q8hrs x 24hr, then 1mg po q12hrs x 24hr, then 1mg Metoprolol Tartrate (Metoprolol Tartrate) 50 Mg Tablet 50 MG PO DAILY Omeprazole (Omeprazole) 40 Mg Capsule. 40 MG PO DAILY Omeprazole (Omeprazole) 40 Mg Capsule. 40 MG PO DAILY Omeprazole (Omeprazole) 20 Mg Tablet. 20 MG PO BID Paroxetine (Paroxetine) 40 Mg Tablet 40 MG PO DAILY Scheduled PRN Ibuprofen (Ibuprofen) 200 Mg Capsule 400 MG PO DAILY PRN PRN For Pain Ibuprofen (Ibuprofen) 600 Mg Tablet 600 MG PO QID PRN PRN For Pain Ibuprofen (Ibuprofen) 600 Mg Tablet 600 MG PO QID PRN PRN For Pain Lorazepam (Lorazepam) 1 Mg Tablet 1 MG PO TID PRN PRN For Anxiety 2 tabs every 4 hr. for 2 d.; then 1 tab. every 4 h.; then 1 every 8 hours for 2 days; then one twice daily Ondansetron ODT (Ondansetron ODT) 8 Mg Tab.rapdis 8 MG PO QID PRN PRN For Nausea General Time Seen by Provider: 07:10 Chief Complaint Other (Medical clearance ) Initial Psychiatric Assessment: Expresses suicidal intent, Expresses suidical plan Hx Obtained From: Patient Arrived By: Walk-in Onset Occurred: Onset unknown Severity: Current: No pain currently Severity: Maximum: No pain Immunizations: Unknown Recent Healthcare: Recent doctor visit Risk-Overdose/Alcohol Tox )( Suicide Risk Stratification : Alcohol use: Previous attempt RF Statements: Risk factors reviewed Past Medical History Past Medical History ETOH Abuse h/o Seizures and delirium tremens secondary to alcohol withdrawal (by report - long hx of ED visits more recently without seizures for years) Mild Seizure Disorder followed by Dr. Armijo (was on Topamax, D/C'd 01/03 as can contribute to kidney stones, has tolerated Depakote) Anxiety and panic disorder Kidney Stones Patient has horded benzodiazepines with multiple prescriptions from multiple providers H/o mild LFT elevation attributed to ETOH abuse Chronic shoulder pain right and left ("rotator cuff and labrum tear") Chronic hip pain Reports: Diabetes mellitus, GERD, Hyperlipidemia, Hypertension Past Surgical History Umbilical hernia repair. Bilateral inguinal hernia repair. Tonsillectomy. Melanoma removed twice at two different sites. Cystocopy and ureteral stone extraction 12/[address] Kincaid Family History noncontributory Smoking History Never Smoker Social History Previous suicide attempt Alcohol Use: >5 per day Drug Use: THC Other Social History: Poor social support, Frequent ED visitor, Local resident , Homeless Occupation homeless 04/11/2016 Ambulatory Status Independent Review of Systems Review of Systems Note: +alcohol abuse Constitutional: Denies: Chills, Fever Psychiatric: Reports: Suicidal ideation, Denies: Homicidal ideation Complete sys rev & neg: except as marked. Physical Exam Initial Vital Signs Vital Signs (First) Date Time Temp Pulse Resp B/P Pulse Ox O2 Delivery O2 Flow Rate FiO2 01/31/17 07:11 36.4 70 14 167/89 97 Room Air Initial VS: Reviewed, Vital signs abnormal Head / Eyes: Atraumatic, Normocephalic Neck: Full range of motion Skin: Warm, Dry General/Constitutional: Awake, Alert, No acute distress Respiratory / Chest: No respiratory distress Cardiovascular: Heart rate NL, Regular rhythm, Heart sounds NL Abdomen: Atraumatic, Soft, Non-tender Neurologic: Oriented X3, Speech NL Mildly tremulous Abnormal Thinking / Perception: Positive: Suicidal, with plan Interpretation & Diagnostics Lab Results Interpretation Test 01/31/17 07:45 Hold Urine Received (Received) Lab Results Interpretation: Breathalyzer of 128 Re-Eval/Medical Decision Med Decision/Clinical Course Intoxicated requesting crisis respite, also some persistent and chronic thoughts of suicide. Patient will be sent to crisis respite into a monitored care setting, Ativan taper prescribed. Regular daily meds prescribed. Return and follow-up precautions given. Re-Evaluation/Progress : Time of Eval: 12:23 Re-Evaluation/Progress Note: Discussed plan for Crisis respite this evening. Patient understands and agrees with plan. All questions addressed at this time. Consultation #1: Consulted With: general distillery worker Call Returned at: 08:35 Note: Discussed pt's case. Will call Crisis to see if pt has a bed. Consultation #2: Consulted With: general distillery worker Call Returned at: 12:00 Note: Crisis may have bed available at 1800 this evening. Counseled Regarding: Diagnosis, Need for follow-up, When/why to return to ED Discharge & Departure Impression: Primary Impression: Alcohol abuse Additional Impression: Suicidal ideation Disposition: Home Discharge Condition All VS Reviewed: Yes Condition: Stable Additional Instructions: Go directly to crisis respite. Return to ER as needed. Referrals: NOPCP (PCP) Ewa Attestation Portions of this note were transcribed by Arash Francois. I, Dr. Welsh personally performed the history, physical exam and medical decision-making; I reviewed and confirmed the accuracy of the information in the transcribed note. Signed by: Ewa Molina, 01/31/17 Hung Welsh DO Jan 31, 2017 06:55 ARASH FRANCOIS Jan 31, 2017 07:24
[2017-01-31 07:11] VITALS: BP 167/89; PULSE 70; RESP 14; O2SAT 97
[2017-01-31] MEDS ORDERED: LORazepam 2 mg Tablet PO ONE (09:55)
[2017-01-31] MEDS ORDERED: LORazepam 2 mg Tablet PO PRN (12:10)
[2017-01-31] MEDS ORDERED: LORA-303 PO (12:34)
[2017-01-31 12:35] VITALS: BP 169/91; PULSE 93; RESP 14; O2SAT 94
[2017-01-31] MEDS ORDERED: PARoxetine 20 mg Tablet PO ONE (12:40)
[2017-01-31] MEDS ORDERED: BusPIRone 15 mg Dividose Tablet PO ONE (12:40)
[2017-01-31] MEDS ORDERED: Pantoprazole 40 mg ER24 Tablet PO ONE (12:40)
[2017-01-31] MEDS ORDERED: Ondansetron 8 mg ODT Tablet PO ONE (15:15)
[2017-01-31] MEDS ORDERED: _LORazepam 2 MG Tablet PO SCH (16:15)
== END 2017-01-31 18:55 | disposition home or self-care (01) ==
LOC: SED 06:51
DX: F10.10 Alcohol abuse, uncomplicated (principal); R45.851 Suicidal ideations; I10 Essential (primary) hypertension; E11.9 Type 2 diabetes mellitus without complications; E78.5 Hyperlipidemia, unspecified; K21.9 Gastro-esophageal reflux disease without esophagitis; F41.9 Anxiety disorder, unspecified; Z87.442 Personal history of urinary calculi; Z59.0 Homelessness; Z88.0 Allergy status to penicillin; Z88.5 Allergy status to narcotic agent; Z88.6 Allergy status to analgesic agent

== ENCOUNTER 2017-02-07 05:59 | Observation (INO) | payer OTHER ==
[~2017-02-07] VITALS: Ht 170.2 cm; Wt 92.7 kg
[2017-02-07 06:08] VITALS: BP 162/94; PULSE 86; RESP 18; O2SAT 94
[2017-02-07] MEDS ORDERED: LORazepam 2 mg Tablet PO ONE (06:25)
[2017-02-07 06:55] LABS: BASOPHILS % (AUTO) 0.4 % (0-3); MONOCYTES % (AUTO) 8.6 % (4-12); Mean Corpuscular Hemoglobin 30.9 pg (27.0-35.0); Mean Corpuscular Volume 86.6 fL (81-100); NEUTROPHILS % (AUTO) 62.2 % (40-74); Platelet Count 106 bil/L (150-400)
--- NOTE | 2017-02-07 07:51 | ED.REPORT ---
HPI-General Illness Date of Service Feb 07, 2017 ED Provider: Dennis Fernando MD Patient is a 61 year old male with a hx of EtOH abuse with withdrawal related seizures and frequent ED visits with similar presentations who presents to the ED requesting alcohol detox. His last drink was at 0500. He denies fevers, hematochezia, hematemesis, or any other symptoms. He reports he has a bed on Feb 15 at [facility] in [place]. Nursing Notes Stated Complaint: DETOX Chief Complaint: Substance Abuse Nursing Notes Reviewed: Yes Allergies: Coded Allergies: Penicillins (Verified Allergy, Unknown, RASH, 02/07/17) acetaminophen (Verified Allergy, Unknown, RASH, 02/07/17) codeine (Verified Allergy, Unknown, 02/07/17) hydrocodone (Verified Allergy, Unknown, 02/07/17) oxycodone (Verified Allergy, Unknown, 02/07/17) Scheduled Lisinopril (Lisinopril) 20 Mg Tablet 20 MG PO DAILY Lorazepam (Ativan) 1 Mg Tablet 1 MG PO DIRECTED 2mg po Q6hrs x24hrs, then 1mg po Q6hrs x24hrs, then 1mg po Q8hrs x24hrs, then 1mg po Q12hrs x24hrs, then 1mg PO Lorazepam (Ativan) 1 Mg Tablet 1 MG PO ASDIRECTED 2mg po q6hrs x 24hr, then 1mg po q6hrs x 24hr, then 1mg po q8hrs x 24hr, then 1mg po q12hrs x 24hr, then 1mg Metoprolol Tartrate (Metoprolol Tartrate) 50 Mg Tablet 50 MG PO DAILY Omeprazole (Omeprazole) 40 Mg Capsule. 40 MG PO DAILY Omeprazole (Omeprazole) 40 Mg Capsule. 40 MG PO DAILY Omeprazole (Omeprazole) 20 Mg Tablet. 20 MG PO BID Paroxetine (Paroxetine) 40 Mg Tablet 40 MG PO DAILY Scheduled PRN Ibuprofen (Ibuprofen) 200 Mg Capsule 400 MG PO DAILY PRN PRN For Pain Ibuprofen (Ibuprofen) 600 Mg Tablet 600 MG PO QID PRN PRN For Pain Ibuprofen (Ibuprofen) 600 Mg Tablet 600 MG PO QID PRN PRN For Pain Lorazepam (Lorazepam) 1 Mg Tablet 1 MG PO TID PRN PRN For Anxiety 2 tabs every 4 hr. for 2 d.; then 1 tab. every 4 h.; then 1 every 8 hours for 2 days; then one twice daily Ondansetron ODT (Ondansetron ODT) 8 Mg Tab.rapdis 8 MG PO QID PRN PRN For Nausea General Time Seen by MD: 06:05 Chief Complaint Other (EtOH withdrawal ) Hx Obtained From: Patient Arrived By: Walk-in Sudden in Onset?: Yes Onset Occurred: 5 - 8 hours ago Symptom Duration: Since onset Severity: Current: No pain currently Severity: Maximum: No pain Context Related History: Reports Drug use/abuse suspected Recent Healthcare: Recent doctor visit Similar Sx Previous: Yes Past Medical History Past Medical History ETOH Abuse h/o Seizures and delirium tremens secondary to alcohol withdrawal (by report - long hx of ED visits more recently without seizures for years) Mild Seizure Disorder followed by Dr. Armijo (was on Topamax, D/C'd 01/03 as can contribute to kidney stones, has tolerated Depakote) Anxiety and panic disorder Kidney Stones Patient has horded benzodiazepines with multiple prescriptions from multiple providers H/o mild LFT elevation attributed to ETOH abuse Chronic shoulder pain right and left ("rotator cuff and labrum tear") Chronic hip pain Reports: Diabetes mellitus, GERD, Hyperlipidemia, Hypertension Past Surgical History Umbilical hernia repair. Bilateral inguinal hernia repair. Tonsillectomy. Melanoma removed twice at two different sites. Cystocopy and ureteral stone extraction 12/[address] Kincaid Family History noncontributory Smoking History Never Smoker Social History Previous suicide attempt Alcohol Use: >5 per day Drug Use: THC Other Social History: Poor social support, Frequent ED visitor, Local resident , Homeless Occupation homeless 04/11/2016 Ambulatory Status Independent Review of Systems +EtOH withdrawal Full Review of Systems Constitutional: Denies: Fever GI: Denies: Hematemesis, Hematochezia Complete sys rev & neg: except as marked. Physical Exam Vital Signs Vital Signs Date Time Temp Pulse Resp B/P Pulse Ox O2 Delivery O2 Flow Rate FiO2 02/07/17 06:08 36.9 86 18 162/94 94 Room Air Initial VS: Reviewed, Vital signs normal Head / Eyes: Atraumatic, Normocephalic Neck: Full range of motion Abdomen / GI: Soft, Non-tender Skin: Warm, Dry Neurologic: Alert, Oriented, Nonfocal General/Constitutional: Awake, Alert disheveled and unkept Respiratory / Chest: Atraumatic, Breath sounds NL, Breath sounds = bilat, No respiratory distress Cardiovascular: Heart rate NL, Regular rhythm, Heart sounds NL Upper Extremities Upper Extremity / MS: Atraumatic Interpretation & Diagnostics Lab Results Interpretation Result Diagram: 02/07/17 0636 02/07/17 0636 Test 02/07/17 06:36 White Blood Count 4.9th/mm3 (3.8-10.1) Red Blood Count 4.56mil/mm3 (4.40-5.80) Hemoglobin 14.1g/dL (13.8-17.2) Hematocrit 39.5% (41.0-50.0) Mean Corpuscular Volume 86.6fL (81-100) Mean Corpuscular Hemoglobin 30.9pg (27.0-35.0) Mean Corpuscular Hemoglobin Concent 35.7% (32.0-37.0) Red Cell Distribution Width 13.8% (12.3-15.4) Platelet Count 106bil/L (150-400) Neutrophils (%) (Auto) 62.2% (40-74) Lymphocytes (%) (Auto) 27.6% (14-46) Monocytes (%) (Auto) 8.6% (4-12) Eosinophils (%) (Auto) 1.0% (0-5) Basophils (%) (Auto) 0.4% (0-3) Sodium Level 142mEq/L (134-144) Potassium Level 3.4mEq/L (3.5-5.2) Chloride Level 101mEq/L (97-108) Carbon Dioxide Level 25mmol/L (18-29) Blood Urea Nitrogen 9mg/dL (8-27) Creatinine 0.80mg/dL (0.76-1.27) Estimat Glomerular Filtration Rate 105mL/min (>59) Glucose Level 118mg/dL (60-99) Calcium Level 8.5mg/dL (8.5-10.1) Total Bilirubin 0.5mg/dL (0.0-1.2) Aspartate Amino Transf (AST/SGOT) 44U/L (0-50) Alanine Aminotransferase (ALT/SGPT) 17U/L (0-44) Alkaline Phosphatase 70U/L (25-160) Total Protein 7.0g/dL (6.4-8.4) Albumin 4.3g/dL (3.4-5.0) Thyroid Stimulating Hormone (TSH) 0.739uIU/mL (0.450-4.500) Hold Peterson Top Tube Received (Received) Re-Eval/Medical Decision Time of Eval: 09:03 Re-Evaluation/Progress Note: Discussed plan to try to admit to hospital until CRISIS bed opens. Patient understands and agrees with plan. All questions addressed at this time. Consultation : Referral / Consult Name: Tavia Stubbs DO Consulted With: Hospitalist Call Returned at: 09:32 Cardiac Rn: Will see patient, Agrees with eval, Agrees with plan, Accepts admit Note: Discussed pt's case. Accetps admit. Counseled Regarding: Diagnosis, Need for admission Discharge & Departure Primary Impression: Alcohol withdrawal Complication of substance-induced condition: with unspecified complication Qualified Code: F10.239 - Alcohol dependence with withdrawal, unspecified Disposition: ADMITTED TO HOSPITAL Discharge Condition All VS Reviewed: Yes Condition: Stable Referrals: NOPCP (PCP) Scribe Attestation Portions of this note were transcribed by Arash Francois. I, Dr. Fernando personally performed the history, physical exam and medical decision-making; I reviewed and confirmed the accuracy of the information in the transcribed note. Signed by: Ewa Molina, 02/07/17 Dennis Fernando MD Feb 07, 2017 07:50 ARASH FRANCOIS Feb 07, 2017 09:07
[2017-02-07] MEDS ORDERED: Alum-Mag Hydrox-Simeth 30 mL Suspension PO PRN (09:40)
[2017-02-07] MEDS ORDERED: Ondansetron 2 mg/mL 2 mL Inj IVPUSH PRN (09:40)
[2017-02-07] MEDS ORDERED: Polyethylene Glycol (PEG) 17 Gm Powder PO PRN (09:40)
[2017-02-07 10:15] VITALS: BP 159/84; PULSE 72; O2SAT 98
[2017-02-07] MEDS ORDERED: AMLO2.5T PO (10:28)
[2017-02-07] MEDS ORDERED: BUSP15TA3 PO (10:28)
[2017-02-07] MEDS ORDERED: CLON0.2T PO (10:28)
[2017-02-07 10:29] VITALS: PULSE 73
[2017-02-07] MEDS ORDERED: IBUP-1827 PO (10:33)
[2017-02-07] MEDS: BusPIRone 15 mg Dividose Tablet PO SCH ×2 (14:12→22:01)
[2017-02-07] MEDS: PARoxetine 20 mg Tablet PO SCH (14:12)
[2017-02-07] MEDS: Pantoprazole 40 mg ER24 Tablet PO SCH (14:13)
[2017-02-07] MEDS: Multivit-Miner-Folic Acid-Iron Tablet PO SCH (14:13)
[2017-02-07] MEDS: cloNIDine 0.1 mg Tablet PO SCH ×2 (14:13→22:01)
--- NOTE | 2017-02-07 15:59 | PCM.HPMED ---
Subjective Date of Service Feb 07, 2017 Primary Provider: Admitting Physician: Tavia Stubbs DO Primary Care Physician: Herber Attending Physician: Tavia Stubbs DO Admit Status: From the Emergency Department, Admit to Green Team Chief Complaint: alcohol detox History of Present Illness: This is a 61 yo homeless white male who has extensive hx of alcoholism and prior failed attempts to rehab, presenting to the ER with intentions of detox. He states he has had 4x 16 oz "high alcohol content" beers and almost all of a quart of whiskey during the night. Last drink was 5AM 02/07. He says he has chills/hot flashes, tremors. He is not actively having tremors in the room. He says his eyes water and he gets diarrhea when he withdraws. He has an appt in [place] for a o/p detox on 02/15. He smokes marjuana but he denies any other drugs and denies tobacco abuse. He has no fevers/chills, has chronic R shoulder RC pain, he denies diarrhea, constipation, endorses nausea/vomiting. He has poor appetite. He has no dyspnea or chest pain, feels he is somewhat unsteady with his gait, a bit dizzy. These things happen to him when he does not drink liquor. He is endorsing a B/L tempral headache, photophobia pain is 4/10. He also have burning pain over his maxillary sinus area, he does not think he has teeth pain , He does not know if he ever had shingles or herpes infections. He does recall having chicken pox in the remote past. PAin is worse with eating, and talking. In the ED, K=3.4, platelets 118 other labs are unremarkable. Review of Systems: Complete review of systems performed, pertinent positives and negatives per history of present illness, all other systems reviewed and are negative. Allergies Coded Allergies: codeine (Verified Allergy, Severe, Rash and breathing problem, 02/07/17) hydrocodone (Verified Allergy, Intermediate, Rash, 02/07/17) Penicillins (Verified Allergy, Unknown, RASH, 02/07/17) acetaminophen (Verified Allergy, Unknown, RASH, 02/07/17) oxycodone (Verified Allergy, Unknown, Rash, 02/07/17) Home Medications lisinopril, parozetine, omeprazole, zofran, ibuprofen PMH Seizure due to alcohol withdrawl, ETOH abuse, cannabinoid abise, anxiety, nephrolithiasis, Elevated LFT, Chronic hip, shoulder pain, DM2, HTN, GERD, HLD Surgical History B/L inguinal hernia repair, tonsils, melanoma, cystoscopy and stone extraction, tonsils Family History Mother: CHF Father: Heart Disease, at age 57 Social History Occupation: none Hx Alcohol Use: Yes (1/5 VODKA PER DAY) Hx Substance Use: Yes (MARIJAUNA OCCAS) Hx Tobacco Use: No Smoking Status: Never Smoker Living Arrangement: Alone Spiritual Support poor Exam Vital Signs Vital Sign - Last Date Time Temp Pulse Resp B/P Pulse Ox O2 Delivery O2 Flow Rate FiO2 02/07/17 10:29 73 02/07/17 06:08 36.9 18 162/94 94 Room Air Exam Neuro: Cranial neversa re grossly intact, gagging deferred. Tremulous tongue. GENERAL: Dishevelled appearing, long amor, alert, in no acute distress. nontoxic. HEENT: Eyes: Lids and conjunctiva. No lesions. Pupils equal, round, reactive to light and accommodation. Irises symmetrical, undilated.Ears, Nose, Mouth, and throat: External ears without lesions. Nares patent. Septum midline. Hearing is grossly intact. Lips, teeth, gums, palate without lesion. Posterior oropharynx: No erythema. No tonsillar enlargement, crypt formation or abscess. Poor dentition, pain over right maxillary sinus with palpation NECK: Supple and symmetric. No masses. Thyroid midline, non enlarged. No JVD. Neck is nontender. Full range of motion without pain. RESPIRATORY: Good respiratory effort. Clear to auscultation. Clear to percussion. Chest: Symmetrical rise and fall. Symmetrical expansion. No egophony or tactile fremitus. CARDIOVASCULAR: Regular rate and rhythm. No murmur, gallops, clicks, heaves or rub. Cardiac palpation within normal limits. Pulses equal at carotid. Femoral and pedal pulses: No peripheral edema. GASTROINTESTINAL: No tenderness or mass. No hepatosplenomegaly. No hernia. Bowel sounds equal times four quadrants. Abdomen is nondistended. No rebound, guarding, rigidity or ecchymosis. MUSCULOSKELETAL: Normal gait and station. No pathology to digits or nails. Extremities move times four. No tenderness or effusion. Range of motion adequate. Strength and tone equal bilaterally, stable. SKIN: Inspection within normal limits. Well hydrated. No diaphoresis. No obvious wound. LYMPH: Cervical lymph nodes. No lymphadenopathy. NEUROLOGICAL: Cranial nerves II-XII grossly intact. Gagging was differed, trmulous tongue. PSYCHIATRIC: Judgment and insight adequate. Alert and oriented times three. Memory and mood within normal limits. No delusions, hallucinations. Lab and Diagnostics Result Diagram: 02/07/1736 02/07/1736 Assessment & Plan This is a 61 yo M with chronic alcohol abuse, numerous ED visits presenting for alcohol withdrawl Alcohol abuse, withdrawl POA ongoing CIWA protocol Banana bagx1, daily thiamine multiuvitamin daily Libriium 25 mg Q6H Lorazepam for break trhough 2 ordered of 2 mg IV 30 min apart, call MD thereafter Patient is also on tegretol for headaches/Trigeminal neuralgia, should help with withdrawl as well CD consult to social work Seizure precautions Tele monitoring Headache/Facial Pain POA active MRI Face W/WO Carbamazepine 200 mg ER daily Discussed above management with Dr. Yanni Flores, we appreciate her time. R/O post herpetic neuralgia HTN chronic presumed stable Continue lisinopril home medication DM2 chronic unknown level of control -- Patient has no home meds -- A1C is ordered Hyperlipidemia chronic unknown level of control -- Pt has no home meds -- AM lipid panel GERD chronic presumed stable -- Cont home meds Depression/OCD chronic presumed stable -- cont home med paroxetine Code Status: Full ADM sister Rosa Snyder Dispo: Patient was admitted under observation status with expected length of stay < than two midnights due to severity of presenting symptoms, risk of adverse event, and complexity of treatment plan Resuscitation Status: CPR: Attempt Resuscitation Time spent 45 min Tavia Stubbs DO Feb 07, 2017 10:34
[2017-02-07 16:14] LABS: APPEARANCE,URINE CLEAR (CLEAR,HAZY); COLOR,URINE YELLOW (YELLOW); OCCULT BLOOD,URINE TRACE (NEGATIVE); PH,URINE 8.5 (5.0-8.0); UROBILINOGEN,URINE NORMAL (NORMAL)
[2017-02-07] MEDS: chlordiazePOXIDE 25 mg Capsule PO SCH ×2 (16:14→22:01)
[2017-02-07] MEDS: carBAMazepine 200 mg ER12 Tablet PO SCH (17:04)
[2017-02-07 19:47] VITALS: BP 152/94; PULSE 91; RESP 22; O2SAT 97
[2017-02-08] VITALS (7 sets, daily range): BP systolic 124–151; BP diastolic 79–84; PULSE 59–86; RESP 16–18; O2SAT 95–98
[2017-02-08] MEDS: chlordiazePOXIDE 25 mg Capsule PO SCH ×4 (04:04→20:59)
[2017-02-08 05:37] LABS: BASOPHILS % (AUTO) 0.6 % (0-3); EOSINOPHILS % (AUTO) 1.2 % (0-5); MONOCYTES % (AUTO) 12.7 % (4-12); Mean Corpuscular Hemoglobin 30.7 pg (27.0-35.0); Mean Corpuscular Volume 85.7 fL (81-100); NEUTROPHILS % (AUTO) 50.4 % (40-74); Platelet Count 88 bil/L (150-400)
[2017-02-08] MEDS ORDERED: Pantoprazole 40 mg ER24 Tablet PO SCH (06:30)
[2017-02-08] MEDS: Pantoprazole 40 mg ER24 Tablet PO SCH (06:37)
[2017-02-08] MEDS: BusPIRone 15 mg Dividose Tablet PO SCH ×3 (07:43→20:59)
[2017-02-08] MEDS: cloNIDine 0.1 mg Tablet PO SCH ×3 (07:43→20:59)
[2017-02-08] MEDS: Multivit-Miner-Folic Acid-Iron Tablet PO SCH (07:44)
[2017-02-08] MEDS: PARoxetine 20 mg Tablet PO SCH (07:44)
[2017-02-08] MEDS: carBAMazepine 200 mg ER12 Tablet PO SCH (07:45)
[2017-02-08] MEDS ORDERED: PARoxetine 20 mg Tablet PO SCH (08:30)
[2017-02-08] MEDS ORDERED: Multivit-Miner-Folic Acid-Iron Tablet PO SCH (08:30)
[2017-02-08] MEDS: Thiamine Inj 100 MG in 0.9% Sodium Chloride 100 ML IV SCH (09:15)
--- NOTE | 2017-02-08 13:16 | DRSVH ---
PROCEDURE: MRI BRAIN WITHOUT CONTRAST ([id number]) INDICATIONS: facial pain Right sided TECHNIQUE: Non-contrast axial T1 spin echo, axial T2 fast spin echo, sagittal and axial FLAIR, coronal T2 fast s pin echo, axial gradient echo, axial diffusion and ADC through the brain. COMPARISON: [facility], MR, SEIZURE BRAIN W & W/O CONT, 03/13/2014, 13:49. [facility], CT, CT BRAIN WO CON, 09/19/2015, 8:34. [facility], CT, CT BRAIN WO CON, 2015, 20:53. [facility], CT, CT BRAIN WO CON, 02/19/2016, 2:22. FINDINGS: Image quality: Excellent. CSF spaces: Ventricles appear symmetric in size and shape. Basal cisterns are patent. No extra-axi al fluid collections. Brain: No intracranial bleeds or mass effects. There is cerebral volume loss for age. There are pe riventricular and deep white matter chronic small vessel ischemic changes. Brainstem appears normal. Diffusion-weighted images show no acute ischemic insults. No chronic ischemic insults. Normal int ravascular flow voids are present. A mild gil cisterna magna is incidentally noted. Skull and face: Calvarial bone marrow is normal in signal. Orbits are normal. Sinuses: Sinuses and mastoids are clear. IMPRESSION: No imaging explanation is found for this patient's presenting symptoms. No findings of acute or subacute infarction can be seen. Dictated by: Germain Mcneill M.D. on 02/08/2017 at 13:12 Approved by: Germain Mcneill M.D. on 02/08/2017 at 13:14
--- NOTE | 2017-02-08 20:28 | PCM.PNMED ---
Subjective Date of Service Feb 08, 2017 Subjective Patient is seen and examined. He was apparently withdrawing this morning with the fever score of 11, profusely sweating. Score has improved thereafter. He states that his headache has gotten better after carbamazepine was given. He complains of diarrhea, which happens to him and his going through withdrawal. He had no trouble with hallucinations. No other concerns. Exam Vital Signs Vital Sign - Last Date Time Temp Pulse Resp B/P Pulse Ox O2 Delivery O2 Flow Rate FiO2 02/08/17 04:14 36.9 65 18 124/84 95 Room Air Intake and Output 02/07/17 02/07/17 02/08/17 Cumulative From/Thru 14:59 22:59 06:59 02/07/17 06:08 - 02/08/17 05:24 Intake Total 1350 ml 250 ml 1600 ml Output Total 700 ml 300 ml 1000 ml Balance 650 ml -50 ml 600 ml Intake Oral 1350 ml 250 ml 1600 ml Output Urine Total 700 ml 300 ml 1000 ml # Bowel Movements 4 4 Exam Gen.: No acute distress, laying on bed, with a towel over forehead HEENT: NCAT Heart: Regular rate and rhythm no S3-S4 murmurs Lungs: Clear to auscultation no crackles or wheezes Abdomen flat nondistended Extremities: Negative for edema Neurological: No focal symptoms Psychiatric: Negative for anxiety IVs and Medications Medications Reviewed: Medications were reviewed in detail Lab and Diagnostics Result Diagram: 02/08/1751902/08/17 05 X-Rays, CTs and MRIs PROCEDURE: MRI BRAIN WITHOUT CONTRAST ([id number]) INDICATIONS: facial pain Right sided IMPRESSION: No imaging explanation is found for this patient's presenting symptoms. No findings of acute or subacute infarction can be seen. Dictated by: Germain Mcneill M.D. on 02/08/2017 at 13:12 Approved by: Germain Mcneill M.D. on 02/08/2017 at 13:14 Assessment & Plan This is a 61 yo M with chronic alcohol abuse, numerous ED visits presenting for alcohol withdrawl. Alcohol abuse, withdrawl POA improving CIWA protocol Banana bagx1, daily thiamine multiuvitamin daily Libriium 25 mg Q6H Lorazepam for break trhough 2 ordered of 2 mg IV 30 min apart for CIWA greater than 10, call MD thereafter Patient is also on tegretol for headaches/Trigeminal neuralgia, should help with withdrawl as well CD consult to social work Seizure precautions Tele monitoring: No overnight events Headache/Facial Pain POA improving MRI Face W/WO: NAD Carbamazepine 200 mg ER daily Discussed above management with Dr. Yanni Flores, we appreciate her time. R/O post herpetic neuralgia HTN chronic presumed stable Continue lisinopril home medication Continue clonidine and home medication DM2 chronic stable -- Patient has no home meds -- A1C is 5.5 Hyperlipidemia chronic unknown level of control -- Pt has no home meds -- AM lipid panel, ASCVD risk calculation shows:mod-high dose statin -- Start patient on atorvastatin 10 mg GERD chronic presumed stable -- Cont home meds Depression/OCD chronic presumed stable -- cont home med paroxetine Code Status: Full ADM sister Rosa Snyder High-risk medication: Ativan IV, Librium Dispo: Patient was admitted under observation status with expected length of stay < than two midnights due to severity of presenting symptoms, risk of adverse event, and complexity of treatment plan Resuscitation Status: CPR: Attempt Resuscitation Time spent 25 minutes Tavia Stubbs DO Feb 08, 2017 07:37
[2017-02-08] MEDS: 0.9% Sodium Chloride 1,000 ML IV SCH (20:59)
[2017-02-09] VITALS (8 sets, daily range): BP systolic 145–159; BP diastolic 77–88; PULSE 57–66; RESP 12–18; O2SAT 95–98
[2017-02-09] MEDS: chlordiazePOXIDE 25 mg Capsule PO SCH ×3 (05:46→17:55)
[2017-02-09] MEDS: Pantoprazole 40 mg ER24 Tablet PO SCH (05:46)
[2017-02-09] MEDS: carBAMazepine 200 mg ER12 Tablet PO SCH (08:11)
[2017-02-09] MEDS: Thiamine Inj 100 MG in 0.9% Sodium Chloride 100 ML IV SCH (08:12)
[2017-02-09] MEDS: Multivit-Miner-Folic Acid-Iron Tablet PO SCH (08:12)
[2017-02-09] MEDS: cloNIDine 0.1 mg Tablet PO SCH ×3 (08:12→21:35)
[2017-02-09] MEDS: BusPIRone 15 mg Dividose Tablet PO SCH ×3 (08:12→21:35)
[2017-02-09] MEDS: PARoxetine 20 mg Tablet PO SCH (08:12)
[2017-02-09] MEDS: 0.9% Sodium Chloride 1,000 ML IV SCH (08:13)
[2017-02-09] MEDS: Benzocaine-Menthol Lozenge 2/Pkg PO PRN ×2 (16:10→21:38)
--- NOTE | 2017-02-09 21:13 | PCM.PNMED ---
Subjective Date of Service Feb 09, 2017 Subjective Patient states that he has had nightmares last night, sweating a lot. There is under control. He states that he has vivid dreams. Asking to stay 1 more night to go to [place] [facility] and admitted tomorrow a.m. No tremors noted this a.m. He had bad dreams last night, sweating, diarrhea is under control. Vivd dreams. Asking to stay one more night to go to [place] [facility] in [facility] tomorrow. No tremors noted this am. Facial pain has mostly resolved Exam Vital Signs Vital Sign - Last Date Time Temp Pulse Resp B/P Pulse Ox O2 Delivery O2 Flow Rate FiO2 02/09/17 08:00 66 02/09/17 05:38 36.9 18 147/78 96 Room Air Intake and Output 02/08/17 02/08/17 02/09/17 Cumulative From/Thru 15:00 23:00 07:00 02/07/17 06:08 - 02/09/17 05:55 Intake Total 107 ml 2650 ml 630 ml 4987 ml Output Total 700 ml 1700 ml Balance 107 ml 1950 ml 630 ml 3287 ml Intake Oral 2650 ml 4250 ml IV Total 107 ml 0 ml 630 ml 737 ml Output Urine Total 700 ml 1700 ml # Bowel Movements 6 10 Exam Gen.: No acute distress laying in bed with a towel over his face HEENT: Slight Pain with jaw deviation, sensitivity to touch noted on the right side of face Abd soft, non tender Lungs: clear to auscultation, no crackles or wheezes Ext: no swelling Musculoskeletal: Lens Cleaner strength symmetric and equal Neurological: No focal deficits Psychiatric: No anxiety IVs and Medications Medications Reviewed: Medications were reviewed in detail Lab and Diagnostics Result Diagram: 02/08/1751902/[id number]/17519 X-Rays, CTs and MRIs PROCEDURE: MRI BRAIN WITHOUT CONTRAST ([id number]) INDICATIONS: facial pain Right sided IMPRESSION: No imaging explanation is found for this patient's presenting symptoms. No findings of acute or subacute infarction can be seen. Dictated by: Germain Mcneill M.D. on 02/08/2017 at 13:12 Approved by: Germain Mcneill M.D. on 02/08/2017 at 13:14 Assessment & Plan This is a 61 yo M with chronic alcohol abuse, numerous ED visits presenting for alcohol withdrawl. Alcohol abuse, withdrawl POA improving CIWA protocol Banana bagx1, daily thiamine multiuvitamin daily Librium 25 mg Q8H, plan to taper to twice daily tomorrow followed by daily at bedtime Lorazepam for break trhough 2 ordered of 2 mg IV 30 min apart for CIWA greater than 10, call MD thereafter Patient was also on tegretol for headaches, should help with withdrawl as well CD consult to social work Seizure precautions Tele monitoring: No overnight events, telemetry is discontinued Headache/Facial Pain POA improving MRI Face W/WO: NAD, trigeminal neuralgia is ruled out Initially Carbamazepine 200 mg ER daily was given Discussed above management with Dr. Yanni Flores, we appreciate her time. Plans to DC at discharge, as his symptoms have resolved HTN chronic presumed stable Continue lisinopril home medication Continue clonidine and home medication DM2 chronic stable -- Patient has no home meds -- A1C is 5.5 Hyperlipidemia chronic unknown level of control -- Pt has no home meds -- AM lipid panel, ASCVD risk calculation shows:mod-high dose statin -- Discontinued statin as alcohol is a contraindication to statin GERD chronic presumed stable -- Cont home meds Depression/OCD chronic presumed stable -- cont home med paroxetine Code Status: Full ADM sister Rosa Snyder High-risk medication: Ativan IV, Librium Dispo: Patient was admitted under observation status with expected length of stay < than two midnights due to severity of presenting symptoms, risk of adverse event, and complexity of treatment plan. Patient will be discharged home tomorrow so he can go to detox in [place] Resuscitation Status: CPR: Attempt Resuscitation Time spent 30 minutes Tavia Stubbs DO Feb 09, 2017 09:12
[2017-02-10] MEDS: Benzocaine-Menthol Lozenge 2/Pkg PO PRN (00:27)
[2017-02-10 00:55] VITALS: BP 139/73; PULSE 58; RESP 18; O2SAT 96
[2017-02-10] MEDS: chlordiazePOXIDE 25 mg Capsule PO SCH (01:06)
[2017-02-10 06:13] VITALS: BP 151/77; PULSE 55; RESP 18; O2SAT 96
[2017-02-10] MEDS: Pantoprazole 40 mg ER24 Tablet PO SCH (06:16)
[2017-02-10] MEDS ORDERED: CHLO25CA10 PO (07:57)
[2017-02-10] MEDS: Thiamine Inj 100 MG in 0.9% Sodium Chloride 100 ML IV SCH (08:30)
[2017-02-10] MEDS: cloNIDine 0.1 mg Tablet PO SCH (09:00)
[2017-02-10] MEDS: Multivit-Miner-Folic Acid-Iron Tablet PO SCH (09:00)
[2017-02-10] MEDS: BusPIRone 15 mg Dividose Tablet PO SCH (09:00)
[2017-02-10] MEDS: PARoxetine 20 mg Tablet PO SCH (09:00)
--- NOTE | 2017-02-10 10:40 | PCM.DIMED ---
Discharge Instructions Date of Service Feb 10, 2017 Dates of Hospitalization Feb 07, 2017 at 09:48 Discharge Diagnosis Discharge Diagnosis Alcohol Withdrawl, Headache, HTN Diet Discharge Diet: Heart Healthy Activity Discharge Activity: No restrictions Call your provider Call your provider for: Fever or Chills, Shortness of breath, Bleeding, Chest pain, Vomitting, Excessive diarrhea, Weakness (unilateral), Other Patient Instructions Patient Instructions Take Librium one pill to night and another tomorrow night. Please go to [facility] facility today as you previously planned Follow-up plan F/U with [facility] [facility] physician upon d/c. F/U with [facility] in one month Tavia Stubbs DO Feb 10, 2017 10:40
[2017-02-10] MEDS ORDERED: chlordiazePOXIDE 25 mg Capsule PO ONE (10:41)
[2017-02-10] MEDS ORDERED: MULT-1018 PO (10:50)
[2017-02-10] MEDS ORDERED: THIA100T64 PO (10:51)
[2017-02-10] MEDS ORDERED: chlordiazePOXIDE 25 mg Capsule PO SCH (20:30)
--- NOTE | 2017-02-11 00:15 | PCM.DC.MED ---
Discharge Summary Date of Service Feb 10, 2017 Dates of Hospitalization Date of Hospital Admission Feb 07, 2017 at 09:48 Date of Discharge: Feb 11, 2017 Providers: Admitting Physician: Tavia Pascual DO Primary Care Physician: Herber Attending Physician: Tavia Pascual DO Diagnosis at Time of Discharge Diagnosis at Time of Discharge Alcohol Withdrawl, Headache, HTN Procedures XRay, CTs & MRIs PROCEDURE: MRI BRAIN WITHOUT CONTRAST ([id number]) INDICATIONS: facial pain Right sided IMPRESSION: No imaging explanation is found for this patient's presenting symptoms. No findings of acute or subacute infarction can be seen. Dictated by: Germain Mcneill M.D. on 02/08/2017 at 13:12 Approved by: Germain Mcneill M.D. on 02/08/2017 at 13:14 Brief History This is a 61 yo homeless white male who has extensive hx of alcoholism and prior failed attempts to rehab, presenting to the ER with intentions of detox. He states he has had 4x 16 oz "high alcohol content" beers and almost all of a quart of whiskey during the night. Last drink was 5AM 02/07. He says he has chills/hot flashes, tremors. He is not actively having tremors in the room. He says his eyes water and he gets diarrhea when he withdraws. He has an appt in [place] for a o/p detox on 02/15. He smokes marjuana but he denies any other drugs and denies tobacco abuse. He has no fevers/chills, has chronic R shoulder RC pain, he denies diarrhea, constipation, endorses nausea/vomiting. He has poor appetite. He has no dyspnea or chest pain, feels he is somewhat unsteady with his gait, a bit dizzy. These things happen to him when he does not drink liquor. He is endorsing a B/L tempral headache, photophobia pain is 4/10. He also have burning pain over his maxillary sinus area, he does not think he has teeth pain , He does not know if he ever had shingles or herpes infections. He does recall having chicken pox in the remote past. PAin is worse with eating, and talking. In the ED, K=3.4, platelets 118 other labs are unremarkable. Hospital Course This is a 61 yo M with chronic alcohol abuse, numerous ED visits presenting for alcohol withdrawl. Alcohol abuse, withdrawl POA improving CIWA protocol Banana bagx1, daily thiamine multiuvitamin daily Initially patient was given IV lorazepam, Librium, carbamazepine, last 2 days of his hospitalization he was only on Librium and carbamazepine Patient was also on tegretol for headaches, should help with withdrawl as well CD consult to social work Seizure precautions Tele monitoring: No overnight events, telemetry is discontinued on 02/09 -- On the day of discharge patient is not having any withdrawal symptoms, only on Librium taper for benzo. He was given 1 dose for tonight in one more for tomorrow night to complete the taper Headache/Facial Pain POA is already on 02/10 MRI Face W/WO: NAD, trigeminal neuralgia is ruled out Initially Carbamazepine 200 mg ER daily was given Discussed above management with Dr. Yanni Flores, we appreciate her time. Discontinue at discharge, as his symptoms have resolved HTN chronic presumed stable Continued lisinopril home medication Continued clonidine and home medication DM2 chronic stable -- Patient has no home meds -- A1C is 5.5 Hyperlipidemia chronic unknown level of control -- Pt has no home meds -- AM lipid panel, ASCVD risk calculation shows:mod-high dose statin -- Patient was not prescribed statin as alcohol is a contraindication to statin GERD chronic presumed stable -- Cont home meds Depression/OCD chronic presumed stable -- cont home med paroxetine Code Status: Full ADM sister Rosa Snyder High-risk medication: Ativan IV, Librium Patient is admitted under Inpatient status with expected length of stay greater than 2 midnights due to severity of presenting symptoms, risk of adverse event, and complexity of treatment plan. Exam Vital Signs (Last) Date Time Temp Pulse Resp B/P Pulse Ox O2 Delivery O2 Flow Rate FiO2 02/10/17 06:13 36.5 55 18 151/77 96 Room Air Exam Gen.: No acute distress, sitting up in chair HEENT: NCAT Abd soft, non tender Lungs: clear to auscultation, no crackles or wheezes Ext: no swelling Neurological: No focal deficits Psychiatric: No anxiety Heart: Regular rate and rhythm no S3-S4 murmurs Test 02/07/17 06:36 02/07/17 10:09 02/07/17 10:10 02/07/17 15:58 Thyroid Stimulating Hormone (TSH) 0.739uIU/mL (0.450-4.500) Hold Peterson Top Tube Received (Received) Hold Urine Received (Received) Hemoglobin A1c 5.5% (4.8-5.6) Magnesium Level 1.6mg/dL (1.6-2.6) Urine Color Yellow (YELLOW) Urine Appearance Clear (CLEAR,HAZY) Urine pH 8.5 (5.0-8.0) Urine Specific [place] 1.010 (1.003-1.035) Urine Protein Tracemg/dL (NEG,TRACE) Urine Glucose (UA) Negativemg/dL (NEGATIVE) Urine Ketones Negativemg/dL (NEGATIVE) Urine Occult Blood Trace (NEGATIVE) Urine Nitrite Negative (NEGATIVE) Urine Bilirubin Negative (NEGATIVE) Urine Urobilinogen Normalmg/dL (NORMAL) Urine Leukocyte Esterase Negative (NEGATIVE) Urine RBC 0-2/hpf (0-2) Urine WBC 0-5/hpf (0-5) Urine Epithelial Cells Few/hpf (NONE-MOD) Urine Crystals None seen (NONE SEEN) Urine Bacteria None/hpf (NONE-FEW) Urine Hyaline Casts None/lpf (NONE) Urine Granular Casts None seen (NONE SEEN) Urine Waxy Casts None seen (NONE SEEN) Urine Red Blood Cell Casts None seen (NONE SEEN) Urine White Blood Cell Casts None seen (NONE SEEN) Urine Mucus None seen (None Seen) Urine Trichomonas None seen (NONE SEEN) Urine Yeast None (NONE SEEN) Urinalysis Comment None Urine Culture Reflexed Not indicated Urine Opiates Screen Negative Urine Methadone Screen Negative Urine Barbiturates Screen Negative Urine Amphetamines Screen Negative Urine Benzodiazepines Screen Negative Urine Cocaine Metabolite Screen Negative Urine Cannabinoids Screen Negative Test 02/08/17 05:20 White Blood Count 3.3th/mm3 (3.8-10.1) Red Blood Count 4.60mil/mm3 (4.40-5.80) Hemoglobin 14.1g/dL (13.8-17.2) Hematocrit 39.4% (41.0-50.0) Mean Corpuscular Volume 85.7fL (81-100) Mean Corpuscular Hemoglobin 30.7pg (27.0-35.0) Mean Corpuscular Hemoglobin Concent 35.8% (32.0-37.0) Red Cell Distribution Width 13.8% (12.3-15.4) Platelet Count 88bil/L (150-400) Neutrophils (%) (Auto) 50.4% (40-74) Lymphocytes (%) (Auto) 34.8% (14-46) Monocytes (%) (Auto) 12.7% (4-12) Eosinophils (%) (Auto) 1.2% (0-5) Basophils (%) (Auto) 0.6% (0-3) Sodium Level 142mEq/L (134-144) Potassium Level 3.6mEq/L (3.5-5.2) Chloride Level 102mEq/L (97-108) Carbon Dioxide Level 24mmol/L (18-29) Blood Urea Nitrogen 10mg/dL (8-27) Creatinine 0.94mg/dL (0.76-1.27) Estimat Glomerular Filtration Rate 87mL/min (>59) Glucose Level 110mg/dL (60-99) Calcium Level 9.1mg/dL (8.5-10.1) Total Bilirubin 0.9mg/dL (0.0-1.2) Aspartate Amino Transf (AST/SGOT) 38U/L (0-50) Alanine Aminotransferase (ALT/SGPT) 14U/L (0-44) Alkaline Phosphatase 88U/L (25-160) Total Protein 6.7g/dL (6.4-8.4) Albumin 4.1g/dL (3.4-5.0) Triglycerides Level 269mg/dL (0-149) Cholesterol Level 197mg/dL (100-199) LDL Cholesterol, Calculated 98.200mg/dL (0-99) VLDL Cholesterol 53.800mg/dL HDL Cholesterol 45mg/dL (>39) Cholesterol/HDL Ratio 4.38 (0.0-4.4) Discharge Medications Discharge Medications Amlodipine (Amlodipine) 2.5 Mg Tablet 2.5 MG PO DAILY (Reported) Buspirone (Buspirone) 15 Mg Tablet 15 MG PO TID (Reported) Clonidine (Clonidine) 0.2 Mg Tablet 0.1 MG PO TID (Reported) Lisinopril (Lisinopril) 20 Mg Tablet 20 MG PO DAILY (Reported) Multivitamin (Multi Vitamin Daily) 1 Each Tablet 1 EACH PO DAILY Prescribed by: TAVIA PASCUAL DO Omeprazole (Omeprazole) 40 Mg Capsule.dr 40 MG PO DAILY Prescribed by: RIGO JONES MD Paroxetine (Paroxetine) 40 Mg Tablet 40 MG PO DAILY (Reported) Thiamine Mononitrate (Vitamin B-1) 100 Mg Tablet 100 MG PO DAILY Prescribed by: TAVIA PASCUAL DO As needed Chlordiazepoxide (Chlordiazepoxide) 25 Mg Capsule 25 MG PO HS PRN PRN For Anxiety Prescribed by: TAVIA PASCUAL DO Ibuprofen (Ibuprofen) 600 Mg Tablet 600 MG PO Q6H PRN PRN For Pain (Reported) Followup Plan Follow-up plan [facility] upon d/c. F/U with [facility] in one month Discharge Diet: Heart Healthy Discharge Activity: No restrictions Patient Instructions Take Librium one pill to night and another tomorrow night. Please go to [facility] today as you previously planned Time spent Greater than 30 minutes was spent in preparation of discharge with greater than 50% of that time dedicated to patient counseling and coordination of care. Tavia Pascual DO Feb 10, 2017 10:41
--- NOTE | 2017-02-17 10:54 | PCM.ADCARE ---
Advance Care Planning Note Purpose of Encounter: To understand patient's goals of care by discussing his current health, treatments and long term care administrator prognosis Parties in Attendance: Patient, Dr Chelle Stubbs Decisional Capacity: Good Subjective: I reviewed his chronic alcoholism, repeated failed attempts at detox, hyperlipidemia that can not be controlled as statins are contraindicated in alcoholics and his desire for ongoing aggressive care including intubation and potential mechanical ventilation should he be unable to breath on his own; also discussed who would speak on his behalf should he be unable to do so and discussed what conversation he had had with his family so they understand his desires if such situation occurred now or in the future. Objective: Patient understands that continuing to drink is a downward spiral. He understands that he will risk having liver failure and further deterioration of health. In spite of being homeless, he wants to establish himself and do better in life. Plan: We will help patient with withdrawl symptoms until he goes to [facility] facility in [place]. CODE STATUS: FULL ADM: Sister Rosa Snyder Time Spent Adv.Care Planning: Total time spent [id number] and education directly related to advanced planning 30 min Adv. Care Plan Documenation: As above and also in H&P Tavia Stubbs DO Feb 07, 2017 22:50
== END 2017-02-10 11:15 | disposition home or self-care (01) ==
LOC: SED 05:59 → MPC 09:48 → INTOOBSV 09:48 → OBSVTOIN 09:48
PROVIDERS: ADMIT Family Medicine; ATTEND Family Medicine
DX: F10.239 Alcohol dependence with withdrawal, unspecified (principal); I10 Essential (primary) hypertension; Z59.0 Homelessness; R51 Headache; E11.9 Type 2 diabetes mellitus without complications; E78.5 Hyperlipidemia, unspecified; K21.9 Gastro-esophageal reflux disease without esophagitis; G40.909 Epilepsy, unspecified, not intractable, without status epilepticus; F32.9 Major depressive disorder, single episode, unspecified; F42.9 Obsessive-compulsive disorder, unspecified; F12.90 Cannabis use, unspecified, uncomplicated; F41.9 Anxiety disorder, unspecified; M25.559 Pain in unspecified hip; M25.512 Pain in left shoulder; M25.511 Pain in right shoulder
CPT/HCPCS: 36415; 70551; 80053; 80061; 81000; 81002; 82075; 83036; 83735; 84443; 85025; 99285; G0378; G0480; J2060; J2405; J7030